=== PATIENT | female | born 1940 | race Caucasian/White ===

== ENCOUNTER 2018-03-11 19:34 | Emergency (ER) | payer MEDICARE ==
[2018-03-11] MEDS ORDERED: Aspirin 81 mg CHEW TAB* 81 MG TAB.CHEW PO ONE (20:25)
--- NOTE | 2018-03-11 20:31 | UC ---
Cardiac HPI - History of Current Complaint Chief Complaint: UCLowerExtremity Stated Complaint: LOW BACK/LEFT LEG PAIN and chest pains lasting about 1 hour. Feels like pressure. Time Seen by Provider: 03/11/18 19:45 Hx Obtained From: Patient Onset/Duration: Lasting Hours Timing: Constant Initial Severity: Moderate Current Severity: Mild Pain Intensity: 3 Chest Pain Location: Mid Sternal Character: Heaviness, Pressure/Squeezing Aggravating Factor(s): Nothing Alleviating Factor(s): Nothing Associated Signs & Symptoms: Positive: Negative Related History: Similar Episode/Dx as - Has history of CAD. Last cardiac cath about 5 years ago. - Risk Factors Cardiac Risk Factors: Hypertension, Elevated Lipids - pre diabetes Atrial Fibrillation: Negative AMI/ACS Risk Factors: Diabetes - pre-diabetes, Hypertension, Dyslipidemia - Allergy/Home Medications Allergies/Adverse Reactions: Allergies Allergy/AdvReac Type Severity Reaction Status Date / Time No Known Allergies Allergy Verified 03/11/18 19:54 Home Medications: Home Medications Acetaminophen [Tylenol Extra Strength] 100 mg PO DAILY 03/11/18 [History Confirmed 03/11/18] PMH/Surg Hx/FS Hx/Imm Hx - Additional Past Medical History Additional PMH: Hx of CAD and cardiac cath. 5 years ago. Taking no meds for elevated lipids , due to side effects. Pain and pressure in center of chest on and off and lasting about one hour each time. Has them frequently over the last several months. Previously Healthy: No Endocrine History: Diabetes - pre- diabetes., Dyslipidemia Cardiovascular History: Cardiac Disease, Hypertension GI/ History: Gastroesophageal Reflux Other History Of: Negative For: HIV, Hepatitis B, Anticoagulant Therapy - status post Jorge - Surgical History Surgical History: Yes Surgery Procedure, Year, and Place: heart catheter, collagen plug removed fromleg artery. cholecystectomy - Family History Known Family History: Positive: Unknown, Hypertension - Social History Occupation: Retired Lives: With Family Alcohol Use: None Substance Use Type: None Smoking Status (MU): Never Smoked Tobacco Review of Systems Skin: Negative Eyes: Negative ENT: Negative Respiratory: Negative Cardiovascular: Chest Pain Gastrointestinal: Negative Genitourinary: Negative Motor: Negative Neurovascular: Negative Musculoskeletal: Other: - Pain in left LE and low back All Other Systems Reviewed And Are Negative: Yes Physical Exam - Summary Physical Exam Summary: 77 yo alert, elderly woman . Color is pink. ambulates slowly and with antalgic gait, but no cane or walker. Triage Information Reviewed: Yes Appearance: Pain Distress - moderate distress. Vital Signs: Initial Vital Signs Temp 97.8 F 03/11/18 19:49 Pulse 72 03/11/18 19:49 Resp 16 03/11/18 19:49 BP 143/66 03/11/18 19:49 Pulse Ox 99 03/11/18 19:49 Vital Signs Reviewed: Yes Eyes: Positive: Conjunctiva Clear ENT: Positive: Other - hard of hearing. Dental Exam: Normal Neck exam: Normal Neck: Negative: Tenderness @, Enlarged Nodes @ Respiratory: Positive: Chest non-tender, Lungs clear, No respiratory distress, No accessory muscle use. Negative: Plerual rub Cardiovascular: Positive: RRR, No Murmur, Pulses Normal, Brisk Capillary Refill Abdominal Exam: Normal Abdomen Description: Positive: Nontender. Negative: CVA Tenderness (R), CVA Tenderness (L) Bowel Sounds: Positive: Present Pelvic Exam: Positive: Other - not examined Musculoskeletal: Positive: Other: - some pain with SLR on left. Neurological Exam: Normal Psychological Exam: Normal Skin Exam: Normal Diagnostics - EKG Cardiac Rate: NL Cardiac Rhythm: Sinus: Normal Ectopy: None ST Segment: Normal - Differential Diagnoses - Chest Pain Differential Diagnosis/HQI/PQRI: Angina - Differential Diagnoses - Hypertension Differential Diagnosis/HQI PQRI: Angina, Myocardial Infarction - Differential Diagnoses - Palpitations Differential Diagnosis/HQI/PQRI: Coronary Artery Disease - Clinical Impression Provider Diagnoses: chest pain, rule out CAD. lower extremity pain. Discharge - Sign-Out/Discharge Documenting (check all that apply): Discharge/Admit/Transfer - transfer to ER - Discharge Plan Condition: Stable Disposition: TRANS HIGHER L OF CARE FAC Referrals: Pia Gil MD [Primary Care Provider] - - Billing Disposition and Condition Condition: STABLE Disposition: Trans Higher Lvl of Care Fac
[2018-03-11 20:59] VITALS: BP 132/67
== END 2018-03-11 21:00 | disposition short-term general hospital (02) ==
LOC: UCCORT 19:34
DX: R07.9 Chest pain, unspecified (principal); M79.606 Pain in leg, unspecified
CPT/HCPCS: 93005; 99213; A9270-GY; G0463

== ENCOUNTER 2018-08-14 13:31 | Emergency (ER) | payer MEDICARE ==
[2018-08-14 15:01] VITALS: BP 121/59
--- NOTE | 2018-08-14 15:32 | UC ---
Complaint Female HPI - HPI Summary HPI Summary: 77-year-old woman here with a chief complaint of burning with urination been going on for several days. This reminds her of urinary tract infection. She does have a prior history of surgery for uterine prolapse. She's been having some difficulties with urination for more than a year now. She has an appointment with a hand silvering supervisor tomorrow August 15, 2018 for this issue and also with the urologist on August 24, 2018 for the same issue. She gets intermittent suprapubic left lower quadrant pain. That's been going on for about a month she does not have that pain at this time. No fevers or chills. She does have some chronic low back pain that is not any worse with the most recent urinary exacerbation. - History Of Current Complaint Chief Complaint: UCGU Stated Complaint: URINARY COMPLAINT Time Seen by Provider: 08/14/18 15:08 Pain Intensity: 3 - Allergies/Home Medications Allergies/Adverse Reactions: Allergies Allergy/AdvReac Type Severity Reaction Status Date / Time oxycodone [From Percocet] Allergy Rash Verified 08/14/18 14:46 Home Medications: Home Medications Glucosam/Chondr/Collagn/Hyalur [Th Glucosamine/Chondroiti] 1 cap PO DAILY PRN [History Confirmed 08/14/18] Multivitamin with Minerals [One Daily Complete] 1 each PO DAILY 08/14/18 [ History Confirmed 08/14/18] Pantoprazole Sodium [Protonix] 40 mg PO DAILY 08/14/18 [History Confirmed ] PMH/Surg Hx/FS Hx/Imm Hx Previously Healthy: Yes - RECURRENT UTIS Other History Of: Negative For: HIV, Hepatitis B, Anticoagulant Therapy - status post Jorge - Surgical History Surgical History: Yes Surgery Procedure, Year, and Place: heart catheter, collagen plug removed from leg artery. cholecystectomy. Uterine/bladder prolapse and mesh sx--2008. Forearm artery removed due to collapse of same during cardiac cath proceedure. Cataracts b/l - Family History Known Family History: Positive: Unknown, Hypertension Negative: Diabetes - Social History Alcohol Use: None Substance Use Type: None Smoking Status (MU): Never Smoked Tobacco Review of Systems All Other Systems Reviewed And Are Negative: Yes Constitutional: Positive: Negative Skin: Positive: Negative Eyes: Positive: Negative ENT: Positive: Negative Respiratory: Positive: Negative Cardiovascular: Positive: Negative Gastrointestinal: Positive: Abdominal Pain - SEE HPI Genitourinary: Positive: Dysuria, Frequency, Urgency Motor: Positive: Negative Neurovascular: Positive: Negative Musculoskeletal: Positive: Negative Neurological: Positive: Negative Psychological: Positive: Negative Is Patient Immunocompromised?: No Physical Exam Triage Information Reviewed: Yes Appearance: Well-Appearing, No Pain Distress, Well-Nourished Vital Signs: Initial Vital Signs Temp 97.8 F 08/14/18 14:52 Pulse 64 08/14/18 14:52 Resp 20 08/14/18 14:52 BP 121/59 08/14/18 14:52 Pulse Ox 99 08/14/18 14:52 Vital Signs Reviewed: Yes Eye Exam: Normal Eyes: Positive: Conjunctiva Clear Neck exam: Normal Neck: Positive: Supple Respiratory Exam: Normal Respiratory: Positive: Lungs clear, Normal breath sounds, No respiratory distress Cardiovascular Exam: Normal Cardiovascular: Positive: RRR Abdomen Description: Positive: Soft, CVA Tenderness (R) - CHRONIC, CVA Tenderness (L) - CHRONIC Bowel Sounds: Positive: Present Musculoskeletal Exam: Normal Musculoskeletal: Positive: Strength Intact, ROM Intact Neurological Exam: Normal Neurological: Positive: Alert, Muscle Tone Normal, Other: - LEGALLY BLIND Psychological Exam: Normal Psychological: Positive: Normal Response To Family, Age Appropriate Behavior Skin Exam: Normal Complaint Female Dx - Course Course Of Treatment: Patient has appointment tomorrow with her hand silvering supervisor. We will treat the urinary tract infection with Keflex. Urinary culture is pending. Also checking a CBC and a CMP to ensure adequate renal function. Those results are pending. Outpatient no she started feeling very sick she needed to get checked again right away. She has a urology follow-up on August 24, 2018. - Differential Dx/Diagnosis Provider Diagnoses: UTI Discharge - Sign-Out/Discharge Documenting (check all that apply): Patient Departure All imaging exams completed and their final reports reviewed: No Studies - Discharge Plan Condition: Stable Disposition: HOME Prescriptions: Cephalexin CAP* [Keflex CAP*] 500 mg PO TID #21 cap Patient Education Materials: Urinary Tract Infection in Women (ED) Referrals: Nasima Matias MD [Primary Care Provider] - Additional Instructions: FOLLOW UP WITH YOUR DOCTOR. FOLLOW UP WITH GYNECOLOGY TOMORROW SCHEDULED. FOLLOW UP WITH UROLOGY ON July SCHEDULED. YOU R BLOOD WORK; CBC AND CMP RESULTS ARE PENDING. GET RECHECKED FOR ANY WORSENING OF YOUR CONDITION OR QUESTIONS OR CONCERNS. - Billing Disposition and Condition Condition: STABLE Disposition: Home
[2018-08-14 18:46] LABS: EGFR Non-African American 45.5 (>60)
[2018-08-14 18:53] LABS: Hematocrit 39 % (35-47); Hemoglobin 13.1 g/dl (12.0-16.0); Mean Corpuscular HGB Conc 34 g/dl (31-36); Mean Corpuscular Hemoglobin 32 pg (27-31); Mean Corpuscular Volume 93 fL (80-97); Red Blood Count 4.16 10^6/ul (4.00-5.40); Red Cell Distribution Width 12 % (10.5-15); White Blood Count 8.7 10^3/ul (3.5-10.8)
[2018-08-14 19:27] LABS: ABS Basophils 0.1 10^3/ul (0-0.2); ABS Eosinophils 0.1 10^3/ul (0-0.6); ABS Lymphocytes 2.5 10^3/ul (1.0-4.8); ABS Monocytes 0.6 10^3/ul (0-0.8); ABS Neutrophils 5.4 10^3/ul (1.5-7.7); ABS Nucleated RBC 0 10^3/ul; Eosinophil % 1.1 % (0-6); Lymphocyte % 28.6 % (25-47); Nucleated Red Blood Cells % 0
[2018-08-14 19:28] LABS: Platelet Count Platelets clumped. 10^3/ul (150-450)
--- NOTE | 2018-08-17 07:30 | UC ---
- Progress Note Progress Note: + e coli + proteus On cephalexin sensitive ljj 08/17/2018 Discharge - Sign-Out/Discharge Documenting (check all that apply): Post-Discharge Follow Up All imaging exams completed and their final reports reviewed: No Studies - Discharge Plan Condition: Stable Disposition: HOME Prescriptions: Cephalexin CAP* [Keflex CAP*] 500 mg PO TID #21 cap Patient Education Materials: Urinary Tract Infection in Women (ED) Referrals: Nasima Matias MD [Primary Care Provider] - Additional Instructions: FOLLOW UP WITH YOUR DOCTOR. FOLLOW UP WITH GYNECOLOGY TOMORROW SCHEDULED. FOLLOW UP WITH UROLOGY ON July SCHEDULED. YOU R BLOOD WORK; CBC AND CMP RESULTS ARE PENDING. GET RECHECKED FOR ANY WORSENING OF YOUR CONDITION OR QUESTIONS OR CONCERNS. - Billing Disposition and Condition Condition: STABLE Disposition: Home
== END 2018-08-14 15:44 | disposition home or self-care (01) ==
LOC: UCCORT 13:31
DX: N39.0 Urinary tract infection, site not specified (principal); B96.20 Unspecified Escherichia coli [E. coli] as the cause of diseases classified elsewhere; B96.4 Proteus (mirabilis) (morganii) as the cause of diseases classified elsewhere; Z88.5 Allergy status to narcotic agent
CPT/HCPCS: 36415; 80053; 81003; 85025; 87077; 87086; 87186; 99212; G0463

== ENCOUNTER 2018-08-25 15:52 | Emergency (ER) | payer MEDICARE ==
--- OUTSIDE RECORDS SUMMARY | 2018-08-25 16:18 | XMS REPORT ---
:1940 External Reference #:[id number] Author Organization [facility] Address [address], [address] [place] [address] Phone [phone] Care Team Providers Name Role Phone Nasima Matias MD Care Team Information Crew Mess Attendant Unavailable Nasima Matias MD Primary Care Physician Unavailable Payers Type Date Identification Numbers Payment Provider Subscriber Medicare Primary Effective: Policy Number: Medicare Ava 2003 [id number] Jaelyn PayID: [id number] [address] [place] [address] [facility] Policy Number: [facility] Ava Christy [id number] PayID: [id number] [address] [place] [address] Problems Date Description Provider Status Onset: 08/24/2018 Urinary tract infectious disease Lenore Richard M.D. Active Onset: 08/24/2018 Difficulty passing urine Lenore Richard M.D. Active Onset: 06/06/2018 Transient cerebral ischemia Sanford Terrell M.D., Active FACC Onset: 06/06/2018 Abnormal results of cardiovascular Sanford Terrell M.D., Active function studies FACC Onset: 04/26/2018 Gastroesophageal reflux disease Gary Ortega MD Active Onset: 04/26/2018 Chest pain Gary Ortega MD Active Onset: 08/24/2017 Flatulence, eructation and gas Gary Ortega MD Active pain Onset: 05/25/2017 Heartburn Gary Ortega MD Active Onset: 05/25/2017 Chronic nonalcoholic liver disease Gary Ortega MD Active Onset: 05/25/2017 Diarrhea Gary Ortega MD Active Onset: 05/25/2017 Helicobacter pylori Gary Ortega MD Active Family History Date Family Member(s) Problem(s) Comments General Non Contributory : (age 63 Years) Father due to Black Lung (working in [employer]) : (age 41 Years) Mother due to Breast Cancer : (age 49 Years) First Brother due to [place] Social History Type Date Description Comments Marital Status Lives With [facility]ma Home Environment Lives With Diet Patient is on a low sodium diet Occupation Retired Work Status Retired ADL's/IADL's Independent with all ADL's Cigarette Use 20 Years Quit smoked for 5 years Smokeless Tobacco Never Used Smokeless Tobacco ETOH Use Denies alcohol use Smoking Patient is a former smoker Quit when she was 13 Recreational Drug Use Denies Drug Use Daily Caffeine Current Caffeine User Daily Caffeine Patient consumes minimal amounts of caffeine Allergies, Adverse Reactions, Alerts Date Description Reaction Status Severity Comments 01/02/2009 NKDA active Medications Medication Date Status Form Strength Qnty SIG Indications Ordering Provider Tums 08/24/ Active 500mg prn Jose Manuel, 2018 Leonid Grover Acetaminophen 08/24/ Active Tab 1000mg 1 tab po Jose Manuel, 2018 daily prn Leonid Grover Pantoprazole 06/29/ Active Tablets DR 40mg 30tabs 1 by mouth K21.9 Brian Terrell 2018 every day Sanford Wayne M.D., [facility] Nitrostat 06/06/ Active Tablets 0.4mg 30tabs 1 tab sl Nidhi, 2018 Sub every 5 Sanford Wayne min x3 M.DLeonides, FAC chest pain per pt prn Atenolol / Active Tablets 25mg 1/2 by Unknown 0000 mouth bid Probiotic / Active Capsules 1 by mouth Unknown 0000 every day Resveratrol / Active Capsules 100mg 1 po daily Unknown 0000 Co Q 10 / Active Capsules 100mg 1 by mouth Unknown 0000 every day Glucosamine & / Active Cap 1 cap oral Unknown Chondroitin Cap 0000 everyday prn Multivitamin / Active Tablets Adlt 50+ 1 by mouth Unknown Adults 50+ 0000 every day Amlodipine 06/13/ Hx Tablets 2.5mg 30tabs 1 by mouth R07.9 Davidenko, Besylate 2018 every day Sanford Wayne M.D., [facility] Isosorbide 06/06/ Hx Tablets ER 30mg 30tabs 1 by mouth Nidhi Mononitrate ER 2018 24HR every day Sanford Wayne M.D., [facility] Ranexa 05/22/ Hx Tablets ER 500mg 60tabs 1 tab by R07.9 Nidhi, 2018 12HR mouth Sanford Wayne, twice a M.DLeonides, [facility] day Pantoprazole 04/26/ Hx Tablets DR 20mg 90tabs 1 by mouth K21.9 Gary Ortega, Sodium 2018 - every day MD 06/29/ 2017 morning Eye Vitamins 12/10/ Hx Capsules po qd Nidhi, 2009 Sanford Wayne M.D., [facility] Glucosamine-Cho 12/10/ Hx Capsules prn Nidhi, jonhoitin 2009 Sanford Wayne M.D., [facility] Aspirin / Hx Tablets 81mg 1 po qd Unknown 0000 Atenolol / Hx Tablets 25mg 30tabs 1/2 po Unknown 0000 bid Christiana-C / Hx Tablets 500mg 1 po qd Unknown 0000 prn Tums / Hx Chewtabs 500mg prn Unknown 0000 Garlic / Hx Capsules 1 po qd Unknown 0000 Nexium / Hx Capsules 40mg 30caps 1 po qd Unknown [address] DR Nitroglycerin / Hx Tablets 0.4mg 25tabs 1 tab prn Unknown 0000 Sub Lovastatin / Hx Tablets 20mg 90tabs 1 po qd Unknown 0000 Prilosec OTC / Hx Tablets DR 20mg 1 po qd Unknown 0000 Coq10 / Hx Capsules 20mg 1 tab Unknown 0000 daily Resveratrol / Hx Capsules 100mg 1 tab Unknown 0000 daily Flatgap 3 / Hx Capsules 340mg [address] daily Ultimate / Hx Tab 1 tab Unknown Friendly Praveena 0000 daily Pantoprazole / Hx Tablets DR 40mg 1 by mouth Unknown Sodium 0000 every day Ranexa / Hx Tablets ER 500mg 180tab 1 tab by R07.9 Nidhi, 0000 - 12HR s mouth Sanford Wayne, 06/13/ twice M.DLeonides, [facility] 2018 daily Vital Signs Date Vital Result Comment 08/24/2018 BP Systolic 97 mmHg BP Diastolic 60 mmHg Heart Rate 57 /min Respiratory Rate 16 /min Height 60 inches 5'0" Weight 164.38 lb BMI (Body Mass Index) 32.1 kg/m2 BSA (Body Surface Area) 1.72 m2 Eastman body weight in kilograms 45 O2 % BldC Oximetry 96 % Pain Level 0 06/29/2018 BP Systolic Sitting Left Arm 104 mmHg BP Diastolic Sitting Left Arm 68 mmHg Heart Rate 63 /min Respiratory Rate 18 /min Height 60 inches 5'0" Weight 166.00 lb BMI (Body Mass Index) 32.4 kg/m2 BSA (Body Surface Area) 1.72 m2 Eastman body weight in kilograms 45 O2 % BldC Oximetry 96 % Room air 06/06/2018 BP Systolic Sitting Left Arm 124 mmHg BP Diastolic Sitting Left Arm 70 mmHg Heart Rate 75 /min Respiratory Rate 14 /min Height 60 inches 5'0" Weight 167.00 lb BMI (Body Mass Index) 32.6 kg/m2 BSA (Body Surface Area) 1.73 m2 Eastman body weight in kilograms 45 O2 % BldC Oximetry 97 % 05/22/2018 BP Systolic Sitting Left Arm 118 mmHg BP Diastolic Sitting Left Arm 64 mmHg Heart Rate 64 /min Respiratory Rate 18 /min Height 60 inches 5'0" Weight 168.00 lb BMI (Body Mass Index) 32.8 kg/m2 BSA (Body Surface Area) 1.73 m2 Eastman body weight in kilograms 45 O2 % BldC Oximetry 98 % 04/26/2018 BP Systolic Sitting Left Arm 100 mmHg BP Diastolic Sitting Left Arm 62 mmHg Heart Rate 66 /min Respiratory Rate 16 /min Height 60 inches 5'0" Weight 167.00 lb BMI (Body Mass Index) 32.6 kg/m2 BSA (Body Surface Area) 1.73 m2 Eastman body weight in kilograms 45 08/24/2017 BP Systolic Sitting Left Arm 110 mmHg BP Diastolic Sitting Left Arm 64 mmHg Heart Rate 64 /min Respiratory Rate 16 /min Height 60 inches 5'0" Weight 175.00 lb BMI (Body Mass Index) 34.2 kg/m2 BSA (Body Surface Area) 1.76 m2 Eastman body weight in kilograms 45 05/25/2017 BP Systolic Sitting Left Arm 122 mmHg BP Diastolic Sitting Left Arm 78 mmHg Heart Rate 57 /min Respiratory Rate 16 /min Height 60 inches 5'0" Weight 176.00 lb BMI (Body Mass Index) 34.4 kg/m2 BSA (Body Surface Area) 1.77 m2 Eastman body weight in kilograms 45 08/31/2011 Height 60 inches 5'0" Weight 173.00 lb 12/10/2005 Height 61 inches 5'1" Weight 186.00 lb Results Test Date Test Result H/L Range Note Urine Dipstick 08/24/2018 Ua Color yellow Yellow Ua Clarity clear Clear Ua Leuko 125 High Negative Ua Nitrite Negative Negative Ua Urobilinogen 0.2 0.2 - 1.0 E.U./dL Ua Protein 15 High Negative Ua PH 6 Low 6.5-7.5 Ua Blood 80 High Negative Ua Specific Dell 1.030 1.010-1.030 Ua Ketones Negative Negative Ua Bilirubin Negative Negative Ua Glucose Negative Negative Serum sodium measurement 03/13/2018 Serum sodium measurement 142 136-145 Serum or plasma urea 03/13/2018 Serum or plasma urea 19 High 7-18 nitrogen measurement nitrogen measurement (mass/vo (mass/volume) Serum or plasma glucose 03/13/2018 Serum or plasma glucose 114 High 74- 106 measurement (mass/volume) measurement (mass/volume) Serum or plasma 03/13/2018 Serum or plasma 0.9 0.6-1.3 creatinine measurement creatinine measurement (mass/volum (mass/volume) Basic Metabolic Panel 03/13/2018 Glucose 114 mg/dL High 74-106 1 BUN 19 mg/dL High 7-18 1 Creatinine 0.9 mg/dL 0.6-1.3 1 Glom Filtration Rate, Estimate >60 mL/min >60 1 If >60 mL/min >60 1, 2 BUN/Creat 21.1 ratio 1 Sodium 142 mmol/L 136-145 1 Potassium 4.1 mmol/L 3.5-5.1 1 Chloride 108 mmol/L High 98-107 1 Carbon Dioxide 24 mmol/L 21-32 1 Anion Gap 10 mEq/L 8-16 1 Calcium 8.8 mg/dL 8.5-10.1 1 Laboratory test 03/13/2018 Troponin-I < 0.015 ng/mL 1, 3 finding Anion Gap SerPl-sCnc 03/13/2018 Anion Gap SerPl-sCnc 10 8-16 BUN/Creat SerPl 03/13/2018 BUN/Creat SerPl 21.1 Chloride SerPl-sCnc 03/13/2018 Chloride SerPl-sCnc 108 High 98-107 Potassium SerPl-sCnc 03/13/2018 Potassium SerPl-sCnc 4.1 3.5-5.1 Serum carbon dioxide 03/13/2018 Serum carbon dioxide 24 21-32 measurement measurement Serum or plasma 03/13/2018 Serum or plasma 8.8 8.5-10.1 calcium measurement calcium measurement (mass/volume) (mass/volume) Basic Metabolic Panel 03/12/2018 Glucose 117 mg/dL High 74-106 1 BUN 19 mg/dL High 7-18 1 Creatinine 0.8 mg/dL 0.6-1.3 1 Glom Filtration Rate, Estimate >60 mL/min >60 1 If >60 mL/min >60 1, 4 BUN/Creat 23.7 ratio 1 Sodium 141 mmol/L 136-145 1 Potassium 4.1 mmol/L 3.5-5.1 1 Chloride 105 mmol/L 98-107 1 Carbon Dioxide 28 mmol/L 21-32 1 Anion Gap 8 mEq/L 8-16 1 Calcium 8.8 mg/dL 8.5-10.1 1 Laboratory test 03/12/2018 Magnesium 2.0 mg/dL 1.8-2.4 1 finding Globulin Ser Calc-mCnc 03/11/2018 Globulin Ser Calc-mCnc 3.8 1.9-4.3 Lymphocytes/leuk NFr 03/11/2018 Lymphocytes/leuk NFr 40.6 20.0-42.0 Bld Auto Bld Auto Monocytes/leuk NFr Bld 03/11/2018 Monocytes/leuk NFr Bld 10.1 4.3-13.2 Auto Auto Neutrophils # Bld Auto 03/11/2018 Neutrophils # Bld Auto 3.22 1.8-7.0 Neutrophils/leuk NFr 03/11/2018 Neutrophils/leuk NFr 46.5 40.4-72.8 Bld Auto Bld Auto RDW RBC Auto 03/11/2018 RDW RBC Auto 43.5 3-47 RDW RBC Auto-Rto 03/11/2018 RDW RBC Auto-Rto 13.0 11.7-14.4 Serum or plasma 03/11/2018 Serum or plasma 3.9 3.4-5.0 albumin measurement albumin measurement (mass/volume) (mass/volume) Serum or plasma 03/11/2018 Serum or plasma 54 45-117 alkaline phosphatase alkaline phosphatase measurement ( measurement (enzymatic activity/volume) Serum or plasma 03/11/2018 Serum or plasma 24 15-37 aspartate aspartate aminotransferase aminotransferase measure measurement (enzymatic activity/volume) Serum or plasma 03/11/2018 Serum or plasma 7.7 6.4-8.2 protein measurement protein measurement (mass/volume) (mass/volume) Serum or plasma total 03/11/2018 Serum or plasma total 0.3 0.2-1.0 bilirubin measurement bilirubin measurement (mass/ (mass/volume) Stool occult blood 03/11/2018 Stool occult blood Negative Negative Automated blood 03/11/2018 Automated blood 0.15 0.0-0.5 eosinophil count eosinophil count Automated blood 03/11/2018 Automated blood 0.04 0.0-0.1 basophil count basophil count (count/volume) (count/volume) Albumin/Glob SerPl 03/11/2018 Albumin/Glob SerPl 1.0 Alt SerPl-cCnc 03/11/2018 Alt SerPl-cCnc 23 12-78 Automated blood 03/11/2018 Automated blood 37.1 36.0-46.1 hematocrit (volume hematocrit (volume fraction) fraction) Automated blood 03/11/2018 Automated blood 2.81 1.0-4.0 lymphocyte count lymphocyte count (number/volume) (number/volume) Automated blood 03/11/2018 Automated blood 233 155-360 platelet count platelet count Automated blood 03/11/2018 Automated blood 10.2 8.9-12.4 platelet mean volume platelet mean volume measurement measurement Automated erythrocyte 03/11/2018 Automated erythrocyte 31.9 25.9-32.7 mean corpuscular mean corpuscular hemoglobin hemoglobin (mass per erythrocyte) Automated erythrocyte 03/11/2018 Automated erythrocyte 34.2 30.8-34.3 mean corpuscular mean corpuscular hemoglobin hemoglobin concentration measurement (mass/volume) Automated erythrocyte 03/11/2018 Automated erythrocyte 93.2 80.9-99.0 mean corpuscular mean corpuscular volume volume Basophils/leuk NFr Bld 03/11/2018 Basophils/leuk NFr Bld 0.6 0.0-1.1 Auto Auto Blood erythrocytes 03/11/2018 Blood erythrocytes 3.98 3.90-5.40 automated count automated count (number/volume) (number/volume) Blood hemoglobin 03/11/2018 Blood hemoglobin 12.7 11.6-15.8 measurement measurement (mass/volume) (mass/volume) Blood leukocytes 03/11/2018 Blood leukocytes 6.9 3.1-10.7 automated count automated count (number/volume) (number/volume) Blood monocytes 03/11/2018 Blood monocytes 0.70 0.3-0.9 automated count automated count (number/volume) (number/volume) Eosinophil/leuk NFr 03/11/2018 Eosinophil/leuk NFr 2.2 0.0-6.6 Bld Auto Bld Auto Serum or plasma 11/24/2017 Serum or plasma 106 26-192 creatine kinase creatine kinase measurement (enzym measurement (enzymatic activity/volume) pH Ur Strip.auto 11/24/2017 pH Ur Strip.auto 5.5 Low 6.5-7.5 Urobilinogen Ur 11/24/2017 Urobilinogen Ur 1.0 0.2-1.0 Strip-aCnc Strip-aCnc Urine total bilirubin 11/24/2017 Urine total bilirubin Small High Negative detection by automated detection by automated test test strip Urine hemoglobin 11/24/2017 Urine hemoglobin Small High Negative detection by automated detection by automated test strip test strip Urine glucose 11/24/2017 Urine glucose Negative Negative measurement by measurement by automated test strip automated test strip (mass/volume) Urine appearance 11/24/2017 Urine appearance Clear Clear determination determination Specific gravity of 11/24/2017 Specific gravity of 1.020 1.010-1.030 Urine by Automated Urine by Automated test strip test strip Prot Ur 11/24/2017 Prot Ur Negative Negative Strip.auto-mCnc Strip.auto-mCnc Nitrite Ur Ql 11/24/2017 Nitrite Ur Ql Negative Negative Strip.auto Strip.auto Leukocyte esterase Ur 11/24/2017 Leukocyte esterase Ur Trace High Negative Ql Strip.auto Ql Strip.auto Bacteria detection in 11/24/2017 Bacteria detection in Very Few None Seen urine sediment by urine sediment by light micr light microscopy Color Ur 11/24/2017 Color Ur Yellow Yellow Epithelial cells 11/24/2017 Epithelial cells Many None Seen detection in urine detection in urine sediment by li sediment by light microscopy Ketones Ur 11/24/2017 Ketones Ur Trace High Negative Strip.auto-mCnc Strip.auto-mCnc Laboratory test 08/31/2017 H. Pylori Stool <pending> 5 finding Antigen Celiac Disease Comp AB 08/31/2017 Immunoglobulin A 175 mg/dL 64-422 5 Profile Antigliadin Abs, IgG 4 units 0-19 5, 6 Antigliadin Abs, IgA 11 units 0-19 5, 7 Endomysial IgA Antibody Negative Negative 5 t-Transglutaminase IgA <2 U/mL 0-3 5, 8 t-Transglutaminase IgG <2 U/mL 0-5 5, 9 Laboratory test finding 08/31/2017 H. Pylori Stool Negative Negative 5, 10 Antigen Delatorre Fibrosure 05/31/2017 Delatorre Fibrosis Score 0.33 High 0.00-0.21 11 Delatorre Fibrosis Stage F1-F2 . 11 Delatorre Steatosis Score 0.60 High 0.00-0.30 11 Delatorre Steatosis Grade (SEE NOTE) 11, 12 Delatorre Score 0.75 0.25 11 Delatorre Grade (SEE NOTE) 11, 13 Height 60 Inches . 11 Weight Measured 176 LBS . 11 Vtxig-8-Zncypsirdwjqx 297 mg/dL High 110-276 11 Haptoglobin 101 mg/dL 34-200 11 Apolipoprotein A-1 149 mg/dL 116-209 11 Bilirubin,Total 0.3 mg/dL 0.0-1.2 11 GGT 11 IU/L 0-60 11 Alt (SGPT) 19 IU/L 0-40 11 Alt (Sgot) P5P 24 IU/L 0-40 11 Cholesterol,Total 212 mg/dL High 100-199 11 Glucose, Serum 113 mg/dL High 65-99 11 Triglycerides 157 mg/dL High 0-149 11 Delatorre Interpretations: (SEE NOTE) 11, 14 Fibrosis Scoring (SEE NOTE) 11, 15 Steatosis Grading (SEE NOTE) 11, 16 Delatorre Scoring (SEE NOTE) 11, 17 Delatorre Limitations (SEE NOTE) 11, 18 Delatorre Comment . 11, 19 Delatorre Comment 2 (SEE NOTE) 11, 20 Height 60' 11 Weight 176 11 Laboratory test 05/31/2017 H. Pylori Stool Antigen Positive Negative 11 , 21 finding Laboratory test 05/31/2017 Triglycerides 163 mg/dL High <150 11, 22 finding Hepatitis C Antibody < 0.1 s/corat 0.0-0.9 11, 23 Ceruloplasmin 05/31/2017 Ceruloplasmin 22.8 mg/dL 19.0-39.0 11 Height 60' 11 Weight 176 11 Laboratory test finding 07/13/2016 Helicobacter Pylori, Iga Abs <pending> Xray 02/14/2016 CT, Abdomen & Pelvis W Contrast <pending> Xray 11/26/2014 CT, Abdomen & Pelvis W Contrast <pending> Xray 07/25/2012 Upper GI Series <pending> Xray 07/12/2012 CT, Abdomen & Pelvis W Contrast <pending> 1 CHEST PAIN 2 Note: Persistent reduction for 3 months or more in an eGFR <60 mL/min/1.73 m2 defines CKD. Patients with eGFR values >/=60 mL/min/1.73 m2 may also have CKD if evidence of persistent proteinuria is present. The original MDRD equation for estimated GFR is not valid for patients less than 18 years of age. Additional information may be found at www.kdoqi.org. 3 0.0 - 0.045 ng/mL: Normal 0.046 - 0.5 ng/mL: Suggestive 0.6 - 1.5 ng/mL: Consistent 4 Note: Persistent reduction for 3 months or more in an eGFR <60 mL/min/1.73 m2 defines CKD. Patients with eGFR values >/=60 mL/min/1.73 m2 may also have CKD if evidence of persistent proteinuria is present. The original MDRD equation for estimated GFR is not valid for patients less than 18 years of age. Additional information may be found at www.kdoqi.org. 5 B96.81 R14.0 6 Negative 0 - 19 Weak Positive 20 - 30 Moderate to Strong Positive >30 7 Negative 0 - 19 Weak Positive 20 - 30 Moderate to Strong Positive >30 8 Negative 0 - 3 Weak Positive 4 - 10 Positive >10 Tissue Transglutaminase (tTG) has been identified as the endomysial antigen. Studies have demonstr- ated that endomysial IgA antibodies have over 99% specificity for gluten sensitive enteropathy. 9 Negative 0 - 5 Weak Positive 6 - 9 Positive >9 Performed at: RN - [facility] [id number] Splicing Supervisor: Delphine Yanez MD, Phone: [phone] Performed at: [facility] [id number] Splicing Supervisor: Delphine Yanez MD, Phone: [phone] K76.0 B96.81 12 S2 - Moderate Steatosis 13 N2 - DELATORRE 14 Quantitative results of 10 biochemicals in combination with age, gender, height, and weight, are analyzed using a computational algorithm to provide a quantitative surrogate marker (0.0-1.0) of liver fibrosis (Metavir F0-F4), hepatic steatosis (0.0-1.0, S0-S3), and Non-Alcoholic Steato- Hepatitis (DELATORRE) (0.0-0.75, N0-N2). The absence of steatosis (S<0.38) precludes the diagnosis of DELATORRE. Fibrosis marker: In a study of 171 Non-Alcoholic Fatty Liver Disease (NAFLD) patients where 23% had significant NAFLD fibrosis (Metavir F2-F4) and 11% had cirrhosis by liver biopsy, a fibrosis result of >0.3 yielded a sensitivity of 83% and a specificity of 78% for the detection of significant fibrosis(1). Steatosis Marker: In a population of 744 patients (583 HCV, 18 HBV, 69 NAFLD, and 74 alcoholic disease patients), where 36% had significant steatosis (>5%) on a liver biopsy, a steatosis score >0.5 had a sensitivity of 71% and a specificity of 72% for identification of significant steatosis(2). DELATORRE marker: In a population of 257 NAFLD patients, where 62% had at least some DELATORRE by liver biopsy, a prediction of DELATORRE had a sensitivity of 88% for identifying DELATORRE and a specificity of 50%(3). 15 <0.21=Stage F0 - No fibrosis 0.21 - 0.27=Stage F0 - F1 0.27 - 0.31=Stage F1 - Portal fibrosis 0.31 - 0.48=Stage F1 - F2 0.48 - 0.58=Stage F2 - Bridging fibrosis with few septa 0.58 - 0.72=Stage F3 - Bridging fibrosis with many septa 0.72 - 0.74=Stage F3 - F4 >0.74=Stage F4 - Cirrhosis 16 < 0.30=S0 - No Steatosis 0.30 to 0.38=S0 - S1 0.38 to 0.48=S1 - Minimal Steatosis 0.48 to 0.57=S1 - S2 0.57 to 0.67=S2 - Moderate Steatosis 0.67 to 0.69=S2 - S3 > 0.69=S3 - Marked or Severe Steatosis 17 0.25=N0 - Not DELATORRE 0.50=N1 - Borderline or probable DELATORRE 0.75=N2 - DELATORRE 18 DELATORRE FibroSure is recommended for patients with suspected non-alcoholic fatty liver disease. It is not recommended for patients with other liver diseases. It is also not recommended in patients with Gilbert Disease, acute hemolysis, acute viral hepatitis, drug induced hepatitis, genetic liver disease, autoimmune hepatitis and/or extra- hepatic cholestasis. Any of these clinical situations may lead to inaccurate quantitative predictions of fibrosis. 19 Performed at: [address] [id number] Splicing Supervisor: Brian Fraire MD, Phone: [phone] Performed at: [address] [id number] Splicing Supervisor: Delphine Yanez MD, Phone: [phone] This test was developed and its performance characteristics determined by [facility]. It has not been cleared or approved by the Food and Drug Administration. The FDA has determined that such clearance or approval is not necessary. For questions regarding this report please contact customer service at . References: 1. Tom Manrique. et al. Diagnostic Value of Biochemical Markers (FibroTest) for the prediction of Liver Fibrosis in patients with Non-Alcoholic Fatty Liver Disease. BMC Gastroenterology 2006; 6:6. 2. Krystian Nicolas. et al. The Diagnostic Value of Biomarkers (Steato Test) for the Prediction of Liver Steatosis. Comparative Hepatol. 2005; 4:10. 3. Krystian Nicolas, Flower Santos, et al. Diagnostic value of biochemical markers (DELATORRE TEST) for the prediction of non alcohol steato hepatitis in patients with non- alcoholic fatty liver disease. BMC Gastroenterology 2006; 6:34 doi:10.1186/8355-738R-5-34. 21 Performed at: [address] [id number] Splicing Supervisor: Delphine Yanez MD, Phone: [phone] Reference Guidelines*: Normal: ............. < 150 mg/dL Borderline High: .... 150-199 mg/dL High: ............... 200-499 mg/dL Very High: .......... > 500 mg/dL * Source: National Cholesterol Education Program (NCEP) 23 INFCE Result Units: s/co ratio Negative: < 0.8 Indeterminate: 0.8 - 0.9 Positive: > 0.9 The CDC recommends that a positive HCV antibody result be followed up with a HCV Nucleic Acid Amplification test (104377). Performed at: RN - [facility] [address] [id number] Splicing Supervisor: Delphine Yanez MD, Phone: [phone] Procedures Date CPT Code Description Status 06/12/2018 87891 Event Monitor Inter/Review Only Completed 05/22/2018 19330 EKG-Tracing And Report Completed 05/03/2018 81566 Stress Test Interpre And Report Only Completed 05/03/2018 69822 Stress Test Physician Super Only Completed 05/03/2018 57869 Myocardial Imaging Tomographic Multiple Study AT Rest Completed Or Stress 09/08/2016 66606 Echocardiogram Complete Completed 09/08/2016 34003 Event Monitor Inter/Review Only Completed 11/27/2014 37378 Myocardial Imaging Tomographic Multiple Study AT Rest Completed Or Stress 11/27/2014 36430 Stress Test Physician Super Only Completed 11/27/2014 23872 Stress Test Physician Super Only Completed 11/27/2014 72490 Stress Test Interpre And Report Only Completed 07/02/2010 55442 EKG Interpretation And Report Only Completed 01/07/2009 42683 Stress Test Interpre And Report Only Completed 01/07/2009 80794 Stress Test Physician Super Only Completed 01/07/2009 89913 Ejection Fraction Completed 01/07/2009 47244 Myocardial Wall Motion Completed 01/07/2009 96670 Cardiolite Stress/Rest Spect Completed 12/31/2008 87452 EKG-Tracing And Report Completed Encounters Type Date Location Provider CPT E/M Dx Office Visit 08/24/2018 3:15p Urology Lenore Richard M.D. 31352 R39.198 N39.0 Office Visit 06/29/2018 3:00p Cardiology Office Sanford Terrell, 01515 R07.9 Leonid, FAC Office Visit 06/06/2018 1:20p Cardiology Office Sanford Terrell 52153 R07.9 Leonid, FACC R94.30 R12 G45.9 Office Visit 05/22/2018 3:10p [place] [address] R07.9 R94.30 I10 Office Visit 04/26/2018 1:30[place] [address] R07.89 K21.9 K76.0 Office Visit 08/24/2017 3:15[place] [address] R12 K76.0 B96.81 R14.0 Office Visit 05/25/2017 3:45[place] [address] B96.81 R19.7 K76.0 R12 Office Visit 11/27/2014 3:35p Cardiology Office Sanford Terrell, 50626 786.50 M.D., [facility] Office Visit 11/26/2014 1:52p [facility] Magnus Gerardo, 08[address] 786.50 Medical Center M.D. Office Visit 01/20/2009 1:45p Cardiology Office Sanford Terrell, 49731 401.1 M.D., FACC 272.4 Office Visit 12/31/2008 10:30a Cardiology Office [place], [address] 786.50 M.D., FACC [phone] 272.4 Plan of Care Future Appointment(s):02/22/2019 3:00 pm - Lenore Richard M.D. at [id number] 1:40 pm - Sanford Terrell M.D., FACC at Cardiology [id number] 1:00 pm - Luigi Chery MD at GI08/24/2018 - Lenore Richard M.D.R39.198 Other difficulties with micturitionComments:Patient feels that she has to void but then only little urine comes out. I saw the patient had thiscould be due to constipation or rectal overloading with stool. Patient does not have any evidence of retention on today's postvoid residual which was around 50 cc. 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 She wants Dr. Encinas to do her internal exam as she is seeing her in 2 days. Discussed with her possibly placing her on estrogen replacement therapy transvaginally.Patient follow-up with me in 6 months for a postvoid residual
[2018-08-25 16:43] VITALS: BP 120/60
[2018-08-25] MEDS ORDERED: Acetaminophen TAB* 325 MG PO ONE ×2 (16:58→17:25)
--- NOTE | 2018-08-25 17:08 | UC ---
UC General HPI - HPI Summary HPI Summary: RASH TO TIP OF NOSE FOR ABOUT 15 DAYS. GOT MUCH WORSE AND PAINFUL OVER THE PAST 5 DAYS. PT AND DAUGHTER NOTE SOME COLD SORES UNDER THE NOSE AND IN NOSE. NO FEVER OR HEADACHE. PT HAD BEEN VISITING HER IN THE HOSPITAL THUS THEY ARE CONCERNED IT COULD BE MRSA. PT FINISHED AUGMENTIN 2 DAYS AGO FOR A URINARY INFECTION. 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 Onset/Duration: Gradual Onset Timing: Constant Pain Intensity: 7 Associated Signs & Symptoms: Negative: Fever, Headache - Allergy/Home Medications Allergies/Adverse Reactions: Allergies Allergy/AdvReac Type Severity Reaction Status Date / Time oxycodone [From Percocet] Allergy Rash Verified 08/25/18 16:43 Home Medications: Home Medications Atenolol 12.5 mg PO BID 08/25/18 [History Confirmed 08/25/18] Ubidecarenone [Coenzyme Q10] 100 mg PO DAILY 08/25/18 [History Confirmed ] PMH/Surg Hx/FS Hx/Imm Hx - Additional Past Medical History Additional PMH: urinary infection GI/ History: Gastroesophageal Reflux Other History Of: Negative For: HIV, Hepatitis B, Anticoagulant Therapy - status post Jorge - Surgical History Surgical History: Yes Surgery Procedure, Year, and Place: heart catheter, collagen plug removed from leg artery. cholecystectomy. Uterine/bladder prolapse and mesh sx--2008. Forearm artery removed due to collapse of same during cardiac cath procedure. Cataracts b/l - Family History Known Family History: Positive: Unknown, Hypertension Negative: Diabetes - Social History Occupation: Retired Alcohol Use: None Substance Use Type: None Smoking Status (MU): Former Smoker - Immunization History Vaccination Up to Date: Yes Review of Systems All Other Systems Reviewed And Are Negative: Yes Constitutional: Positive: Negative Skin: Positive: Rash - tip of nose Eyes: Positive: Negative ENT: Positive: Negative Respiratory: Positive: Negative Cardiovascular: Positive: Negative Gastrointestinal: Positive: Negative Genitourinary: Positive: Negative Motor: Positive: Negative Neurovascular: Positive: Negative Musculoskeletal: Positive: Negative Neurological: Positive: Negative Psychological: Positive: Negative Is Patient Immunocompromised?: No Physical Exam Triage Information Reviewed: Yes Appearance: Well-Appearing Vital Signs: Initial Vital Signs Temp 97.8 F 08/25/18 16:33 Pulse 76 08/25/18 16:33 Resp 20 08/25/18 16:33 BP 120/60 08/25/18 16:33 Pulse Ox 100 08/25/18 16:33 Vital Signs Reviewed: Yes Eyes: Positive: Conjunctiva Clear ENT: Positive: Pharynx normal, TMs normal, Other - Tip of nose is red and mildly swollen but not fluctuant. There are two alvarenga crusting areas to pt's columella. There is a superficial ulceration just inside the R nare. No auricular adenoapthy.. Negative: Nasal congestion, Nasal drainage, Sinus tenderness Neck: Positive: Supple, Other: - Pt notes mid L anterior mid cervical chain is tender but not enlarged notes appreciated. Respiratory: Positive: Lungs clear, Normal breath sounds Cardiovascular: Positive: RRR, No Murmur Abdomen Description: Positive: Nontender, No Organomegaly, Soft Bowel Sounds: Positive: Present Musculoskeletal: Positive: ROM Intact Neurological: Positive: Other: - A&O x3. s/p cataract, CN grossly intact. Psychological: Positive: Normal Response To Family, Age Appropriate Behavior Skin Exam: Normal Skin: Positive: Rashes - see ent Course/Dx - Course Course Of Treatment: pt recently finished augmentin. she was advised of risk for c-diff colitis with back to back antibiotics. pt and daughter are willing to take risk and benefit of tx out weighs risk of c-diff. pt advised to start probiotics. need fr close f/u stressed and go to er for any worsening as well to which they agree. will cover for possible mrsa and impetigo. - Diagnoses Provider Diagnosis: Cellulitis of nose Discharge - Sign-Out/Discharge Documenting (check all that apply): Patient Departure All imaging exams completed and their final reports reviewed: No - Discharge Plan Condition: Stable Disposition: HOME Prescriptions: Mupirocin 2% OINT* [Bactroban 2 % Oint*] 1 applic TOPICAL BID 7 Days #1 tube Sulfamethox/Trimethoprim DS* [Bactrim DS 800/160 TAB*] 1 tab PO BID 7 Days #14 tab Patient Education Materials: Cellulitis (ED) Referrals: Nasima Matias MD [Primary Care Provider] - 3 Days Additional Instructions: GO TO ER FOR ANY WORSENING. - Billing Disposition and Condition Condition: STABLE Disposition: Home
== END 2018-08-25 17:35 | disposition home or self-care (01) ==
LOC: UCCORT 15:52
DX: J34.0 Abscess, furuncle and carbuncle of nose (principal); Z88.5 Allergy status to narcotic agent; Z87.891 Personal history of nicotine dependence
CPT/HCPCS: 87070; 87205; 99212; A9270-GY; G0463

== ENCOUNTER 2018-09-14 17:10 | Emergency (ER) | payer MEDICARE ==
--- OUTSIDE RECORDS SUMMARY | 2018-09-14 19:03 | XMS REPORT ---
:1940 Author Name sound, ultra Care Team Providers Name Role Phone sound, ultra Unavailable Unavailable PROBLEMS Type Condition ICD9-CM Code [id number] Code Onset Condition SNOMED Code Dates Status Problem Abnormal findings R93.89 Active 979727953 on diagnostic imaging of other specified body structures Problem Pelvic and R10.2 Active 212020169 perineal pain Problem Rectocele N81.6 Active 460722871 Problem Unspecified R32 Active 869572610 urinary incontinence Problem Family history of Z80.3 Active 522436508 malignant neoplasm of breast Problem Cystocele, N81.10 Active 072398066 unspecified ALLERGIES No Information ENCOUNTERS Encounter Location Date Diagnosis [facility] [address] Sep, OBGYN [place], [place] [id number] [facility] [address] Aug, [place]BGYN [place], [place] [id number] [facility] 103 Aug, Pelvic and perineal pain OBGYN [facility], R10.2 and Abnormal [place] [id number] findings on diagnostic imaging of other specified body structures R93.89 [facility] 103 Aug, Pelvic and perineal pain OBGYN [facility], R10.2 [place] [id number] [facility] 103 Aug, Unspecified urinary OBGYN [facility], incontinence R32 ; [place] [id number] Family history of malignant neoplasm of breast Z80.3 ; Pelvic and perineal pain R10.2 ; Encounter for screening mammogram for malignant neoplasm of breast Z12.31 ; Unspecified lump in axillary tail of the left breast N63.32 ; Cystocele, unspecified N81.10 and Rectocele N81.6 [facility] 103 Jul, Unspecified urinary OBGYN [facility], incontinence R32 [place] [id number] [facility] 103 Jul, OBGYN [place], [place] [id number] IMMUNIZATIONS No Known Immunizations SOCIAL HISTORY Never Assessed REASON FOR REFERRAL FUNCTIONAL STATUS PLAN OF CARE Activity Details Pending Test Ultrasound : Pelvis VITAL SIGNS MEDICATIONS Unknown Medications PROCEDURES Procedure Date Ordered Result Body Site TRANSVAGINAL US, NON-OB Aug 31, 2018 RESULTS No Results 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 pelvic US Insurance Providers [facility] Member Patient Patient Patient Patient Patient Subscriber Subscriber Subscriber Group Insurance Plan Plan Plan Plan ID Relationship Address Phone Name Date of ID Name Date of No Type Insurance Insurance Insurance Coverage to Subscriber Address Phone Name Dates [facility] po box [phone] [facility] self Celina [id number] [facility] [address] [place] [address] Options [id number] Options h Medicare [phone] Medicare self Celina [id number] [facility] [place] [phone] MEDICAL (GENERAL) HISTORY Type Description Date Medical History Abnormal Results of cardivascular function stuides Medical History Chest pain. Medical History Benign Essential Hypertension Medical History Heartburn Medical History Helicobacter pylori Medical History Chronic non alcoholic liver disease Medical History Transient cerebral ischemia Medical History IBS Medical History Sleep apnea Surgical History Gallbladder removal 1961 Surgical History Tonsillectomy Surgical History Carpal tunnel- left wrist Surgical History Cataract Surgery- Both eyes. Surgical History Artery mesh repair. 1999 Surgical History Uterine bladder prolapse repair. 2010 Hospitalization History Uterine prolapose surgery Hospitalization History Gallbladder Hospitalization History Childbirth x3 Hospitalization History Severe back pain/Chest pain. 2018
--- OUTSIDE RECORDS SUMMARY | 2018-09-14 19:03 | XMS REPORT ---
:1940 Author Organization [facility] Address [address] [place] [address] Care Team Providers Name Role Phone Wilma Qureshi Unavailable Unavailable PROBLEMS Type Condition ICD9-CM Code NGG54-CX Code Onset Condition SNOMED Code Dates Status Problem Pelvic and R10.2 Active 628742056 perineal pain Problem Family history of Z80.3 Active 782054222 malignant neoplasm of breast Problem Unspecified R32 Active 590283114 urinary incontinence Problem Cystocele, N81.10 Active 958747155 unspecified Problem Rectocele N81.6 Active 619062159 ALLERGIES Substance Reaction Event Type Date Status EGGS Gas Drug Allergy Aug, Active Oxycodone Rash/ disoriented Drug Allergy Aug, Active Spicy foods Diahrrea Non Drug Allergy Aug, Active ENCOUNTERS Encounter Location Date Diagnosis [facility] [address] Sep, OBGYN [place], [place] [id number] [facility] [address] Aug, [place] [id number] [facility] 103 Aug, OBGYN [place] [id number] [facility] 103 Aug, Unspecified urinary OBGYN [facility], incontinence R32 ; [place] [id number] Family history of malignant neoplasm of breast Z80.3 ; Pelvic and perineal pain R10.2 ; Encounter for screening mammogram for malignant neoplasm of breast Z12.31 ; Unspecified lump in axillary tail of the left breast N63.32 ; Cystocele, unspecified N81.10 and Rectocele N81.6 [facility] 103 Jul, Unspecified urinary OBGYN [facility], incontinence R32 [place] [id number] [facility] [address] Jul, OBGYN [place], [place] [id number] IMMUNIZATIONS No Known Immunizations SOCIAL HISTORY Never Assessed REASON FOR REFERRAL FUNCTIONAL STATUS PLAN OF CARE Activity Details Follow Up Sign record release form and obtain records from previous [facility], US and f/u, schedule mammo and L breast US (targeted to axilla), schedule POP-Q, 6 month CBE Reason: Pending Test URINE CULTURE Pending Test URINALYSIS WITH MICROSCOPIC Pending Test Ultrasound : Breast, left Pending Test Mammogram, Diagnostic Bilateral VITAL SIGNS Height 62 in 2018-08-28 Weight 166 lbs 2018-08-28 BMI 30.36 kg/m2 2018-08-28 Blood pressure systolic 122 mm Hg 2018-08-28 Blood pressure diastolic 76 mm Hg 2018-08-28 MEDICATIONS Medication Instructions Dosage Frequency Start End Duration Status Date Date Tums 400mg 1 tablet 12h Active acetaminophen 500 orally every 6 2 tab(s) 6h Active mg hours atenolol 25 mg orally once a 1 tab(s) 24h Active day Gas Aide 125 mg orally 4 times a 1 cap(s) Aug, 2 days Active day (after meals 2017 and at bedtime) pantoprazole 40 orally once a 1 tab(s) 24h Active mg day resvertol po qd 1 tab 24h Active multivitamin orally once a 1 cap(s) 24h Active Multiple Vitamins day Co Q-10 100 mg orally once a 1 cap(s) 24h Active day Probiotic Formula as directed Active Bactrim 400 mg-80 orally 2 times a 2 tab(s) 12h Active mg day glucosamine 500 orally 3 times a 1 tab(s) 8h Active mg day PROCEDURES No Known procedures RESULTS No Results 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- 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 Insurance Providers [facility] Health Member Patient Patient Patient Patient Patient Subscriber Subscriber Subscriber Group Insurance Plan Plan Plan Plan ID Relationship Address Phone Name Date of ID Name Date of No Type Insurance Insurance Insurance Coverage to Subscriber Address Phone Name Dates AARP po box [phone] AARP self Celina [id number] [facility] [id number] [facility] Options [id number] Options h Medicare [phone] Medicare self Celina [id number] [place] [phone] MEDICAL (GENERAL) HISTORY Type Description Date Medical [...] 1999 Surgical History Uterine bladder prolapse repair. 2009 Hospitalization History Uterine prolapose surgery Hospitalization History Gallbladder Hospitalization History Childbirth x3 Hospitalization History Severe back pain/Chest pain. 2018
--- OUTSIDE RECORDS SUMMARY | 2018-09-14 19:03 | XMS REPORT ---
:1940 Author Organization [facility] Address [address] [place] [address] Care Team Providers Name Role Phone Wilma Qureshi Unavailable Unavailable PROBLEMS Type Condition ICD9-CM Code HAW12-TF Code Onset Condition SNOMED Code Dates Status Problem Abnormal findings R93.89 Active 760084938 on diagnostic imaging of other specified body structures Problem Pelvic and R10.2 Active 514673055 perineal pain Problem Rectocele N81.6 Active 899506440 Problem Unspecified R32 Active 764502997 urinary incontinence Problem Family history of Z80.3 Active 096460665 malignant neoplasm of breast Problem Cystocele, N81.10 Active 800618301 unspecified ALLERGIES Substance Reaction Event Type Date Status EGGS Gas Drug Allergy Aug, Active Oxycodone Rash/ disoriented Drug Allergy Aug, Active Spicy foods Diahrrea Non Drug Allergy Aug, Active ENCOUNTERS Encounter Location Date Diagnosis [facility] [address] Sep, [place]BGYN [place], [place] [id number] [facility] [address] Aug, [place], [place] [id number] [facility] 103 Aug, Pelvic and perineal pain OBGYN [facility], R10.2 and Abnormal [place] [id number] findings on diagnostic imaging of other specified body structures R93.89 [facility] 103 Aug, Pelvic and perineal pain OBGYN [facility], R10.2 [place] [id number] [facility] 103 Aug, Unspecified urinary OBGYN [facility], incontinence R32 ; [place] [id number] Family history of malignant neoplasm of breast Z80.3 ; Pelvic and perineal pain R10.2 ; Encounter for screening mammogram for malignant neoplasm of breast Z12.31 ; Unspecified lump in axillary tail of the left breast N63.32 ; Cystocele, unspecified N81.10 and Rectocele N81.6 [facility] 103 Jul, Unspecified urinary OBGYN [facility], incontinence R32 [place] [id number] [facility] 103 Jul, OBGYN [place], [place] [id number] IMMUNIZATIONS No Known Immunizations SOCIAL HISTORY Never Assessed REASON FOR REFERRAL FUNCTIONAL STATUS PLAN OF CARE Activity Details Follow Up To be determined Reason: VITAL SIGNS Height 62 in 2018-08-31 Weight 166 lbs 2018-08-31 BMI 30.36 kg/m2 2018-08-31 Blood pressure systolic 132 mm Hg 2018-08-31 Blood pressure diastolic 66 mm Hg 2018-08-31 MEDICATIONS Medication Instructions Dosage Frequency Start End Duration Status Date Date glucosamine 500 orally 3 times a 1 tab(s) 8h Active mg day resvertol po qd 1 tab 24h Active acetaminophen 500 orally every 6 2 tab(s) 6h Active mg hours multivitamin orally once a 1 cap(s) 24h Active Multiple Vitamins day Tums 400mg 1 tablet 12h Active atenolol 25 mg orally once a 1 tab(s) 24h Active day pantoprazole 40 orally once a 1 tab(s) 24h Active mg day Bactrim 400 mg-80 orally 2 times a 2 tab(s) 12h Active mg day Probiotic Formula as directed Active Gas Aide 125 mg orally 4 times a 1 cap(s) Aug, 2 days Active day (after meals 2017 and at bedtime) Co Q-10 100 mg orally once a 1 cap(s) 24h Active day PROCEDURES No Known procedures RESULTS No Results 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 [facility] Insurance Providers [facility] Member Patient Patient Patient Patient Patient Subscriber Subscriber Subscriber Group Insurance Plan Plan Plan Plan ID Relationship Address Phone Name Date of ID Name Date of No Type Insurance Insurance Insurance Coverage to Subscriber Address Phone Name Dates AARP po box [phone] AARP self Celina [id number] [facility] [id number] 00 [facility] Options [id number] Options h Medicare [phone] Medicare self Celina [id number] [place] [facility] [place] [phone] MEDICAL (GENERAL) HISTORY Type Description Date Medical [...]
[2018-09-14 19:15] VITALS: BP 137/58
--- NOTE | 2018-09-14 19:42 | UC ---
Back Pain HPI - HPI Summary HPI Summary: 78 yo woman with hx of lumbar spinal stenosis, with increased low back and left hip pain since sleeping on a sofa for several days at her son's house. This is similar to past episodes of back pain, and does have a sense of bilateral leg weakness, but no hx of urine leakage. - History of Current Complaint Chief Complaint: UCBackPain Stated Complaint: LOWER BACK PAIN Time Seen by Provider: 09/14/18 19:30 Hx Obtained From: Patient Onset/Duration: Gradual Onset, Lasting Days - 5 Timing: Constant Severity Initially: Moderate Severity Currently: Moderate Pain Intensity: 5 Back Pain: Is Diffuse, Radiates To - left hip and lateral thigh Character: Aching, Throbbing Aggravating Factor(s): Movement Alleviating Factor(s): Position, Other - walking relieves Associated Signs And Symptoms: Positive: Weakness - Allergies/Home Medications Allergies/Adverse Reactions: Allergies Allergy/AdvReac Type Severity Reaction Status Date / Time oxycodone [From Percocet] Allergy Rash Verified 09/14/18 19:05 PMH/Surg Hx/FS Hx/Imm Hx GI/ History: Gastroesophageal Reflux Other History Of: Negative For: HIV, Hepatitis B, Anticoagulant Therapy - status post Jorge - Surgical History Surgical History: Yes Surgery Procedure, Year, and Place: heart catheter, collagen plug removed from leg artery. cholecystectomy. Uterine/bladder prolapse and mesh sx--2008. Forearm artery removed due to collapse of same during cardiac cath procedure. Cataracts b/l - Family History Known Family History: Positive: Unknown, Hypertension Negative: Diabetes - Social History Occupation: Retired Lives: Alone - 2018 Alcohol Use: None Substance Use Type: None Smoking Status (MU): Former Smoker When Did the Patient Quit Smoking/Using Tobacco: 65 yrs ago - Immunization History Vaccination Up to Date: Yes Review of Systems All Other Systems Reviewed And Are Negative: Yes Constitutional: Positive: Fatigue Skin: Positive: Negative Eyes: Positive: Negative ENT: Positive: Negative Respiratory: Positive: Negative Cardiovascular: Positive: Negative Gastrointestinal: Positive: Negative Genitourinary: Positive: Frequency, Other - has had 4 UTI's within recent months , being evaluated by her JIGMAN Motor: Positive: Negative Neurovascular: Positive: Negative Musculoskeletal: Positive: Arthralgia, Myalgia Neurological: Positive: Negative Psychological: Positive: Anxious Is Patient Immunocompromised?: No Physical Exam Triage Information Reviewed: Yes Appearance: Well-Appearing, Pain Distress - moderate, seated uncomfortably on her chair. Vital Signs: Initial Vital Signs Temp 97.4 F 09/14/18 19:08 Pulse 74 09/14/18 19:08 Resp 16 09/14/18 19:08 BP 137/58 09/14/18 19:08 Pulse Ox 100 09/14/18 19:08 Neck: Positive: Supple, Nontender, No Lymphadenopathy Respiratory: Positive: Lungs clear, Normal breath sounds Cardiovascular: Positive: RRR, No Murmur Abdomen Description: Positive: Nontender, Soft Musculoskeletal Exam: Other - Antalgic gait, walks forward flexed at the waist. FF to 60 degrees, cannot extend or lateral bend. Hips with moderate decrease in rom but no pain with movement. Musculoskeletal: Positive: Strength Intact Neurological: Positive: Alert, Muscle Tone Normal Skin Exam: Normal Diagnostics - Laboratory Diagnostic Studies Completed/Ordered: UA with trace blood, nitrite and WBC neg Back Pain Course/Dx - Course Course Of Treatment: requests tylenol with codeine for back pain given lack of response to acetaminophen - Differential Dx/Diagnosis Differential Diagnosis/HQI/PQRI: Cauda Equina Syndrome, Herniated Disc, Strain, Sprain Provider Diagnosis: Lumbar stenosis Discharge - Sign-Out/Discharge Documenting (check all that apply): Patient Departure All imaging exams completed and their final reports reviewed: No Studies - Discharge Plan Condition: Stable Disposition: HOME Prescriptions: Acetaminophen with Codeine [Acetaminophen/Codeine Daniela 300-30 mg] 1 tab PO Q6H PRN #30 tab MDD 6 PRN Reason: Pain - Back Patient Education Materials: Back Pain (ED) Referrals: Nasima Matias MD [Primary Care Provider] - Additional Instructions: Use the minimim amount of tylenol with codeine needed due to risk of sedation and increased risk of falls. You have a referral to physical therapy. Ensure that you resume sleeping on a supportive surface. - Billing Disposition and Condition Condition: STABLE Disposition: Home
[2018-09-14] MEDS ORDERED: Acetaminop/Codeine 30 MG TAB* 1 TAB (300 MG/30 MG) PO ONE (20:26)
== END 2018-09-14 20:33 | disposition home or self-care (01) ==
LOC: UCCORT 17:10
DX: M48.061 Spinal stenosis, lumbar region without neurogenic claudication (principal); Z88.5 Allergy status to narcotic agent
CPT/HCPCS: 81003; 99212; A9270-GY; G0463

== ENCOUNTER 2018-12-04 11:29 | Emergency (ER) | payer MEDICARE ==
[2018-12-04 13:02] VITALS: BP 142/63
--- NOTE | 2018-12-04 13:37 | UC ---
Respiratory Complaint HPI - HPI Summary HPI Summary: Patient's had cold symptoms and a productive cough of yellowish-green sputum over the past week. She is scheduled for a D&C tomorrow due to thickening of the uterine lining as well as a possible dropped bladder and uterus. She thinks she may have had a low-grade fever but she has not measured it. She would also like her urine checked for urinary tract infection because of a history of that. She states she had an episode lasting less than 5 minutes a few days ago where she felt dizzy like she was going to pass out and she put her head down and that resolved spontaneously. She has had similar episodes in the past, for which she has followed up with her primary care provider who has done several tests and has not followed cosmetic. She denies any chest pain, denies nausea. - History of Current Complaint Chief Complaint: UCGeneralIllness Stated Complaint: EARS,FEVER Time Seen by Provider: 12/04/18 13:02 Hx Obtained From: Patient, Family/Box Inspector - Adult daughter is with her today ?: No Onset/Duration: Gradual Onset Timing: Constant Severity Initially: Mild Severity Currently: Mild Pain Intensity: 4 Character: Cough: Productive - Productive cough of yellowish-green sputum. She is a nonsmoker. He did not get a flu shot. She denies any history of asthma or COPD. Associated Signs And Symptoms: Positive: Fever - Patient thinks she may have had a low-grade fever., Nasal Congestion - Risk Factors Pulmonary Embolism Risk Factors: Negative Cardiac Risk Factors: Negative - History of atrial fib under good control with atenolol Pseudomonas Risk Factors: Negative Tuberculosis Risk Factors: Negative - Allergies/Home Medications Allergies/Adverse Reactions: Allergies Allergy/AdvReac Type Severity Reaction Status Date / Time ciprofloxacin [From Cipro] Allergy Disoriented, Verified 12/04/18 14:06 Dizziness, Rash oxycodone [From Percocet] Allergy Rash Verified 12/04/18 12:58 PMH/Surg Hx/FS Hx/Imm Hx Previously Healthy: Yes Cardiovascular History: Atrial Fibrillation - Under good control with atenolol GI/ History: Other - History of urinary tract infections. Other History Of: Negative For: HIV, Hepatitis B, Anticoagulant Therapy - status post Jorge - Surgical History Surgical History: Yes Surgery Procedure, Year, and Place: heart catheter, collagen plug removed from leg artery. cholecystectomy. Uterine/bladder prolapse and mesh sx--2008. Forearm artery removed due to collapse of same during cardiac cath procedure. Cataracts b/l - Family History Known Family History: Positive: Unknown, Hypertension Negative: Diabetes - Social History Occupation: Retired Lives: Alone Alcohol Use: None Substance Use Type: None Smoking Status (MU): Former Smoker When Did the Patient Quit Smoking/Using Tobacco: 1952 - Immunization History Vaccination Up to Date: Yes Review of Systems All Other Systems Reviewed And Are Negative: Yes Constitutional: Positive: Fever - Today she may have had a low-grade fever although she did not measure it. Skin: Positive: Negative Eyes: Positive: Negative ENT: Positive: Nasal Discharge - Nasal coryza that is all screen., Sinus Congestion, Other - Denies any ear pain however states her ears popping. Respiratory: Positive: Cough - Productive cough greenish yellow sputum, moist, congested cough. Distress. Cardiovascular: Positive: Negative Gastrointestinal: Positive: Negative Genitourinary: Positive: Negative - Patient denies any urinary symptoms however she would like her urine tested because she has a history of urinary tract infections especially prior to surgery tomorrow. Motor: Positive: Negative Neurovascular: Positive: Negative Musculoskeletal: Positive: Negative Neurological: Positive: Negative Psychological: Positive: Negative Is Patient Immunocompromised?: No Physical Exam Triage Information Reviewed: Yes Appearance: Well-Appearing, No Pain Distress, Well-Nourished Vital Signs: Initial Vital Signs Temp 98.5 F 12/04/18 12:55 Pulse 68 12/04/18 12:55 Resp 18 12/04/18 12:55 BP 142/63 12/04/18 12:55 Pulse Ox 99 12/04/18 12:55 Vital Signs Reviewed: Yes Eye Exam: Normal ENT: Positive: Hearing grossly normal, Pharynx normal, Nasal congestion, Nasal drainage - Initial nasal coryza and the right naris., TMs normal, Uvula midline. 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 Respiratory: Positive: No respiratory distress, No accessory muscle use, Rhonchi - Scattered rhonchi throughout him in no distress. Good air movement. Cardiovascular Exam: Normal Bowel Sounds: Positive: Present Musculoskeletal Exam: Normal Neurological Exam: Normal Neurological: Positive: Alert, Muscle Tone Normal Psychological Exam: Normal Psychological: Positive: Normal Response To Family Skin Exam: Normal Respiratory Course/Dx - Course Course Of Treatment: CXR: IMPRESSION: SMALL LEFT UPPER LOBE INFILTRATE. RECOMMEND FOLLOW-UP CHEST X-RAYS TO. RESOLUTION. Patient has been comfortable here. Advised to definitely follow up with her primary care provider prior to the antibiotic being completed. Patient's urine test was negative. She was not having any urinary symptoms however wanted checked prior to surgery tomorrow , which is now being canceled. - Differential Dx/Diagnosis Provider Diagnosis: Community acquired pneumonia Discharge - Sign-Out/Discharge Documenting (check all that apply): Patient Departure All imaging exams completed and their final reports reviewed: Yes - Discharge Plan Condition: Fair Disposition: HOME Prescriptions: DOXYcycline CAP(*) [DOXYcycline 100MG CAP(*)] 100 mg PO BID 10 Days #20 cap Patient Education Materials: Community Acquired Pneumonia (DC) Referrals: Nasima Matias MD [Primary Care Provider] - Additional Instructions: Increase fluids. Do not eat any dairy products, antacids or take her multivitamin 2 hours before you take the doxycycline and 2 hours after he took the doxycycline. Be sure and take the doxycycline with food to avoid an upset stomach. Cancel your surgery for tomorrow with Dr. Encinas. Call Dr. Matias's office today and make an appointment for follow-up. Advised them that you have a left upper lobe pneumonia, and you are started on doxycycline. They should make an appointment for you to be rechecked. Your urine test showed that you do not have any urinary tract infection. - Billing Disposition and Condition Condition: FAIR Disposition: Home - Attestation Statements Provider Attestation: I was available for consult. This patient was seen by the [facility]. The patient was not presented to, seen by, or examined by me. -Tisha
== END 2018-12-04 14:19 | disposition home or self-care (01) ==
LOC: UCCORT 11:29
DX: J18.9 Pneumonia, unspecified organism (principal); Y95 Nosocomial condition; I48.91 Unspecified atrial fibrillation; Z79.01 Long term (current) use of anticoagulants; Z87.891 Personal history of nicotine dependence
CPT/HCPCS: 71046; 81003; 99212; G0463

== ENCOUNTER 2019-03-23 18:20 | Emergency (ER) | payer MEDICARE ==
[2019-03-23 18:39] VITALS: BP 106/59
--- NOTE | 2019-03-23 19:14 | UC ---
Knee Pain HPI - HPI Summary HPI Summary: 78 yo female with right medial knee pain x 4 weeks onset after exercising fine at rest pain with use sharp pains when lifting leg wishes to have her urine checked because of frequent UTIs - History of Current Complaint Chief Complaint: UCLowerExtremity Stated Complaint: RIGHT KNEE PAIN Time Seen by Provider: 03/23/19 18:55 Hx Obtained From: Patient Onset/Duration: Sudden Onset Severity Initially: Mild Severity Currently: Mild Pain Intensity: 0 Pain Scale Used: 0-10 Numeric Character: Sharp Aggravating Factor(s): Movement, Weight Bearing Alleviating Factor(s): Rest Associated Signs And Symptoms: Positive: Negative Able to Bear Weight: Yes - Allergies/Home Medications Allergies/Adverse Reactions: Allergies Allergy/AdvReac Type Severity Reaction Status Date / Time ciprofloxacin [From Cipro] Allergy Disoriented, Verified 03/23/19 18:39 Dizziness, Rash oxycodone [From Percocet] Allergy Rash Verified 03/23/19 18:39 Home Medications: Home Medications [place]-3 Fatty Acids [[place]-3] 1,000 mg PO DAILY 03/23/19 [History Confirmed ] PMH/Surg Hx/FS Hx/Imm Hx Previously Healthy: Yes Other History Of: Negative For: HIV, Hepatitis B, Anticoagulant Therapy - status post Jorge - Surgical History Surgical History: Yes Surgery Procedure, Year, and Place: heart catheter, collagen plug removed from leg artery. cholecystectomy. Uterine/bladder prolapse and mesh sx--2008. Forearm artery removed due to collapse of same during cardiac cath procedure. Cataracts b/l - Family History Known Family History: Positive: Unknown, Hypertension Negative: Diabetes - Social History Alcohol Use: None Substance Use Type: None Smoking Status (MU): Former Smoker When Did the Patient Quit Smoking/Using Tobacco: 1952 - Immunization History Vaccination Up to Date: Yes Review of Systems All Other Systems Reviewed And Are Negative: Yes Constitutional: Positive: Negative Skin: Positive: Negative Eyes: Positive: Negative ENT: Positive: Negative Respiratory: Positive: Negative Cardiovascular: Positive: Negative Gastrointestinal: Positive: Negative Genitourinary: Positive: Negative Motor: Positive: Negative Neurovascular: Positive: Negative Musculoskeletal: Positive: Arthralgia Neurological: Positive: Negative Psychological: Positive: Negative Physical Exam Triage Information Reviewed: Yes Appearance: Well-Appearing, No Pain Distress, Well-Nourished Vital Signs: Initial Vital Signs Temp 98.2 F 03/23/19 18:31 Pulse 67 03/23/19 18:31 Resp 18 03/23/19 18:31 BP 106/59 03/23/19 18:31 Pulse Ox 98 03/23/19 18:31 Eye Exam: Normal Eyes: Positive: Conjunctiva Clear ENT: Negative: Nasal congestion, Nasal drainage, Trismus, Muffled voice, Hoarse voice Dental: Negative: Abscess @ Neck: Positive: Supple Respiratory: Positive: Lungs clear, Normal breath sounds, No respiratory distress, No accessory muscle use Cardiovascular: Positive: RRR, No Murmur Musculoskeletal: Positive: ROM Intact, No Edema, Other: - tender medial joint line R kne, normal gait, no effusion Neurological: Positive: Alert Psychological Exam: Normal Skin Exam: Normal Knee Pain Course/Dx - Course Course Of Treatment: XR machine down - Differential Dx/Diagnosis Provider Diagnosis: Right knee pain Discharge - Sign-Out/Discharge Documenting (check all that apply): Patient Departure All imaging exams completed and their final reports reviewed: No Studies - Discharge Plan Condition: Stable Disposition: HOME Patient Education Materials: Knee Pain (ED), R.I.C.E. Treatment (ED) Referrals: Nasima Matias MD [Primary Care Provider] - As Soon As Possible (contact your MD and see if they could order an outpt XR for you) Additional Instructions: tylenol our XR machine is down tonight your Urine was clear - Billing Disposition and Condition Condition: STABLE Disposition: Home
== END 2019-03-23 19:35 | disposition home or self-care (01) ==
LOC: UCCORT 18:20
DX: M25.561 Pain in right knee (principal); Z87.891 Personal history of nicotine dependence
CPT/HCPCS: 81003; 99212; G0463

== ENCOUNTER 2019-04-06 12:43 | Emergency (ER) | payer MEDICARE ==
[2019-04-06 13:13] VITALS: BP 143/52
--- NOTE | 2019-04-06 14:41 | UC ---
Knee Pain HPI - HPI Summary HPI Summary: Pt is accompanied by daughter. Pt states that ~ 4 weeks ago she had sudden onset of right knee pain after standing from sitting and "twisting just a little bit". The pt states that she began to wear an chava bandage and a knee brace and her knee began to feel better. Today, pt stated that she was walking in a store and had sudden onset of pain in right knee and it was worse than previous. - History of Current Complaint Chief Complaint: UCLowerExtremity Stated Complaint: RIGHT KNEE PAIN Time Seen by Provider: 04/06/19 13:40 Hx Obtained From: Patient ?: No Onset/Duration: Sudden Onset, Lasting Days, Still Present Severity Initially: Moderate Severity Currently: Severe Pain Intensity: 10 Character: Dull, Aching, Throbbing, Stiffness Aggravating Factor(s): Movement, Weight Bearing, Prolonged Standing, Stairs Alleviating Factor(s): Rest, Position Associated Signs And Symptoms: Positive: Swelling Able to Bear Weight: Yes - minimal - Risk Factors Septic Arthritis Risk Factor: Extremes of Age Gout Risk Factor: Age ^ 40 - Allergies/Home Medications Allergies/Adverse Reactions: Allergies Allergy/AdvReac Type Severity Reaction Status Date / Time ciprofloxacin [From Cipro] Allergy Disoriented, Verified 04/06/19 13:13 Dizziness, Rash oxycodone [From Percocet] Allergy Rash Verified 04/06/19 13:13 Home Medications: Home Medications Ibuprofen TAB* [Motrin TAB* 400 MG] 400 mg PO DAILY PRN 04/06/19 [History Confirmed 04/06/19] PMH/Surg Hx/FS Hx/Imm Hx Previously Healthy: Yes Cardiovascular History: Cardiac Disease, Hypertension Other History Of: Negative For: HIV, Hepatitis B, Anticoagulant Therapy - status post Jorge - Surgical History Surgical History: Yes Surgery Procedure, Year, and Place: heart catheter, collagen plug removed from leg artery. cholecystectomy. Uterine/bladder prolapse and mesh sx--2008. Forearm artery removed due to collapse of same during cardiac cath procedure. Cataracts b/l - Family History Known Family History: Positive: Unknown, Hypertension Negative: Diabetes - Social History Occupation: Retired Lives: Alone Alcohol Use: None Substance Use Type: None Smoking Status (MU): Former Smoker Have You Smoked in the Last Year: No When Did the Patient Quit Smoking/Using Tobacco: 1952 - Immunization History Vaccination Up to Date: Yes Review of Systems All Other Systems Reviewed And Are Negative: Yes Constitutional: Positive: Negative Skin: Positive: Negative Eyes: Positive: Negative ENT: Positive: Negative Respiratory: Positive: Negative Cardiovascular: Positive: Negative Gastrointestinal: Positive: Negative Genitourinary: Positive: Negative Motor: Positive: Negative Neurovascular: Positive: Negative Musculoskeletal: Positive: Arthralgia, Decreased ROM, Edema, Myalgia Neurological: Positive: Negative Psychological: Positive: Negative Is Patient Immunocompromised?: No Physical Exam Triage Information Reviewed: Yes Appearance: Pain Distress - with examination of right knee Vital Signs: Initial Vital Signs Temp 97.9 F 04/06/19 13:07 Pulse 72 04/06/19 13:07 Resp 18 04/06/19 13:07 BP 143/52 04/06/19 13:07 Pulse Ox 99 04/06/19 13:07 Vital Signs Reviewed: Yes Eye Exam: Normal ENT Exam: Normal ENT: Positive: Hearing grossly normal Dental Exam: Normal Neck exam: Normal Respiratory: Positive: No respiratory distress Musculoskeletal: Positive: Strength Limited @ - right knee, ROM Limited @ - right knee, Other: - c/o pain right medial aspect of knee Neurological Exam: Normal Psychological Exam: Normal Skin Exam: Normal Diagnostics - Radiology No standard instances Radiology Interpretation Completed By: Radiologist - BONE DENSITY: There is diffuse osteopenia. BONES: There is no displaced fracture. There are superior and inferior patellar enthesophytes. There is a well-corticated bone fragment off the lateral patella suggestive of remote injury. JOINTS: There is mild tricompartmental osteoarthritis. There is no suprapatellar joint effusion or lipohemarthrosis. ALIGNMENT: There is no dislocation. SOFT TISSUES: Unremarkable. OTHER FINDINGS: None. IMPRESSION: OSTEOPENIA. NO ACUTE OSSEOUS INJURY. IF SYMPTOMS PERSIST, RECOMMEND REPEAT IMAGING . Knee Pain Course/Dx - Differential Dx/Diagnosis Differential Diagnosis/HQI/PQRI: Internal Derangement Of Knee Provider Diagnosis: Right knee pain Discharge - Sign-Out/Discharge Documenting (check all that apply): Patient Departure All imaging exams completed and their final reports reviewed: Yes - Discharge Plan Condition: Stable Disposition: HOME Patient Education Materials: Knee Pain (ED), Ice Pack Application (ED) Referrals: Nasima Matias MD [Primary Care Provider] - If Needed Arlen Blair MD [Medical Doctor] - As Soon As Possible - Billing Disposition and Condition Condition: STABLE Disposition: Home
== END 2019-04-06 14:51 | disposition home or self-care (01) ==
LOC: UCCORT 12:43
DX: M25.561 Pain in right knee (principal); X50.1XXA Overexertion from prolonged static or awkward postures, initial encounter; Y92.9 Unspecified place or not applicable; I11.9 Hypertensive heart disease without heart failure; Z87.891 Personal history of nicotine dependence
CPT/HCPCS: 99211; G0463

== ENCOUNTER 2022-03-14 13:30 | Inpatient (IN) ==
[2022-03-14] MEDS ORDERED: Lactated Ringers 1000 ml BAG 1,000 ML IV ONE ×2 (13:51→16:21)
[2022-03-14] MEDS ORDERED: Ondansetron 4 mg VIAL 2 MG/ML 2 ml VIAL IV ONE (13:51)
[2022-03-14] MEDS ORDERED: Acetaminophen IV 1 GM/100ML 100 ML IV ONE (13:52)
[2022-03-14 14:09] LABS: ABS Eosinophils 0.1 10^3/ul (0-0.6); ABS Lymphocytes 0.8 10^3/ul (1.0-4.8); ABS Monocytes 1.3 10^3/ul (0-0.8); ABS Neutrophils 14.4 10^3/ul (1.5-7.7); Eosinophil % 0.4 %; Hematocrit 40 % (35-47); Hemoglobin 12.9 g/dL (12.0-16.0); Mean Corpuscular HGB Conc 33 g/dL (31-36); Mean Corpuscular Hemoglobin 31 pg (27-31); Mean Corpuscular Volume 94 fL (80-97); Mean Platelet Volume 8.8 fL (7.4-10.4); Platelet Count 250 10^3/uL (150-450); Red Cell Distribution Width 13 % (10-15); White Blood Count 16.5 10^3/uL (3.5-10.8)
[2022-03-14 14:15] LABS: Activated Partial Thrombo Time 42.2 seconds (26.0-38.0); INR 1.07 (0.86-1.15)
[2022-03-14 15:37] LABS: Albumin 3.8 g/dL (3.2-5.2); Albumin/Globulin Ratio 1.2 (1-3); C Reactive Protein 52.02 mg/L (<8.01); Calcium 8.8 mg/dL (8.6-10.3); Globulin 3.2 g/dL (2-4); Potassium 4.1 mmol/L (3.5-5.0); eGFR CKD-EPI 42.4 (>60)
[2022-03-14 15:51] LABS: High Sensitivity Troponin 1 Hr 10 pg/mL (<15)
[2022-03-14 16:01] LABS: Urine Appearance Turbid; Urine Bilirubin Negative (Negative); Urine Blood 2+ (Negative); Urine Color Yellow; Urine Glucose Negative (Negative); Urine Ketones Negative (Negative); Urine Nitrite Negative (Negative); Urine Protein 1+(30 mg/dL) (Negative); Urine Specific Gravity 1.017 (1.002-1.030); Urine Urobilinogen Negative (Negative)
[2022-03-14 16:06] LABS: Urine Bacteria 1+ (Absent); Urine Red Blood Cell 3+(>10/hpf) (Absent); Urine Squamous Epithelial Cell Present (Absent); Urine White Blood Cell 3+(>20/hpf) (Absent); Urine Yeast Present (Absent)
[2022-03-14] MEDS ORDERED: cefTRIAXone 2 gm/50 mL D5W 2 GM/50 ML BAG IV ONE (16:21)
[2022-03-14] MEDS ORDERED: NS 0.9% 1000 ml BAG 1,000 ML IV SCH (17:45)
[2022-03-14] MEDS: Heparin 5000 UNITS/ML 1 mL VIAL SUBCUT SCH (22:30)
[2022-03-15] MEDS: Heparin 5000 UNITS/ML 1 mL VIAL SUBCUT SCH (05:25)
[2022-03-15 05:44] LABS: ABS Lymphocytes 1.4 10^3/ul (1.0-4.8); ABS Monocytes 1.2 10^3/ul (0-0.8); ABS Neutrophils 9.5 10^3/ul (1.5-7.7); Eosinophil % 0.3 %; Hematocrit 31 % (35-47); Hemoglobin 10.3 g/dL (12.0-16.0); Lymphocyte % 11.8 %; Mean Corpuscular HGB Conc 34 g/dL (31-36); Mean Corpuscular Hemoglobin 31 pg (27-31); Mean Corpuscular Volume 94 fL (80-97); Mean Platelet Volume 8.5 fL (7.4-10.4); Platelet Count 175 10^3/uL (150-450); Red Blood Count 3.27 10^6 /uL (3.70-4.87); Red Cell Distribution Width 13 % (10-15); White Blood Count 12.2 10^3/uL (3.5-10.8)
[2022-03-15 07:03] LABS: C Reactive Protein 122.83 mg/L (<8.01); Calcium 7.9 mg/dL (8.6-10.3); Potassium 3.4 mmol/L (3.5-5.0); eGFR CKD-EPI 48.3 (>60)
[2022-03-15] MEDS ORDERED: Potassium Chlor 20 meq TAB.ER PO ONE (07:18)
[2022-03-15 07:50] LABS: Magnesium 1.6 mg/dL (1.9-2.7)
[2022-03-15] MEDS ORDERED: Magnesium Sulf 4 GM/100 ML IV 4,000 MG/100 ML BAG IVPB ONE (08:25)
[2022-03-15] MEDS: Enoxaparin 40 MG/0.4 ML SYR SUBCUT SCH ×2 (09:48→10:07)
[2022-03-15] MEDS: cefTRIAXone 1 gm/50 mL D5W 1 GM/50 ML BAG IV SCH (15:58)
[2022-03-16 04:39] LABS: ABS Basophils 0.1 10^3/ul (0-0.2); ABS Eosinophils 0.1 10^3/ul (0-0.6); ABS Lymphocytes 1.5 10^3/ul (1.0-4.8); ABS Neutrophils 9.4 10^3/ul (1.5-7.7); Eosinophil % 0.9 %; Hematocrit 32 % (35-47); Hemoglobin 10.7 g/dL (12.0-16.0); Lymphocyte % 12.2 %; Mean Corpuscular HGB Conc 33 g/dL (31-36); Mean Corpuscular Hemoglobin 31 pg (27-31); Mean Corpuscular Volume 94 fL (80-97); Mean Platelet Volume 8.7 fL (7.4-10.4); Platelet Count 193 10^3/uL (150-450); Red Blood Count 3.42 10^6 /uL (3.70-4.87); Red Cell Distribution Width 13 % (10-15)
[2022-03-16 05:29] LABS: Anion Gap 9 mmol/L (2-11); Blood Urea Nitrogen 18 mg/dL (6-24); CO2 Carbon Dioxide 24 mmol/L (22-32); Chloride 107 mmol/L (101-111); Glucose 118 mg/dL (70-100); Magnesium 2.3 mg/dL (1.9-2.7); Potassium 3.7 mmol/L (3.5-5.0); Sodium 140 mmol/L (135-145); eGFR CKD-EPI 39.3 (>60)
[2022-03-16] MEDS ORDERED: Lactated Ringers 1000 ml BAG 1,000 ML IV ONE (07:29)
[2022-03-16] MEDS ORDERED: Ondansetron 4 mg VIAL 2 MG/ML 2 ml VIAL ONE (07:45)
[2022-03-16] MEDS ORDERED: Ondansetron ODT 4 mg TAB 4 MG TAB ONE (07:48)
[2022-03-16] MEDS: Ondansetron ODT 4 mg TAB 4 MG TAB SL PRN (07:50)
[2022-03-16 09:09] LABS: Lipase < 10 U/L (11.0-82.0)
[2022-03-16] MEDS: Enoxaparin 40 MG/0.4 ML SYR SUBCUT SCH (09:38)
[2022-03-16] MEDS ORDERED: Acetaminophen IV 1 GM/100ML 100 ML IV ONE (09:57)
[2022-03-16 13:24] LABS: Urine Appearance Cloudy; Urine Color Yellow; Urine Ketones Negative (Negative); Urine Protein Negative (Negative); Urine Specific Gravity 1.015 (1.005-1.030); Urine Urobilinogen 0.2 (Negative) (Negative); Urine pH 5.5 (5.0-9.0)
[2022-03-16 13:25] LABS: Urine Bilirubin Negative (Negative); Urine Blood 1+ (Small) (Negative); Urine Glucose Negative (Negative); Urine Nitrite Negative (Negative)
[2022-03-16 13:36] LABS: Urine Bacteria Absent (Absent); Urine Red Blood Cell 2+(6-10/hpf) (Absent); Urine Squamous Epithelial Cell Present (Absent); Urine White Blood Cell 3+(>20/hpf) (Absent); Urine Yeast Present (Absent)
[2022-03-16] MEDS: cefTRIAXone 1 gm/50 mL D5W 1 GM/50 ML BAG IV SCH (16:10)
[2022-03-17 07:23] LABS: ABS Basophils 0.1 10^3/ul (0-0.2); ABS Eosinophils 0.1 10^3/ul (0-0.6); ABS Lymphocytes 0.8 10^3/ul (1.0-4.8); ABS Neutrophils 11.2 10^3/ul (1.5-7.7); Eosinophil % 0.7 %; Hematocrit 31 % (35-47); Hemoglobin 10.3 g/dL (12.0-16.0); Lymphocyte % 6.1 %; Mean Corpuscular HGB Conc 33 g/dL (31-36); Mean Corpuscular Hemoglobin 32 pg (27-31); Mean Corpuscular Volume 95 fL (80-97); Mean Platelet Volume 8.5 fL (7.4-10.4); Platelet Count 209 10^3/uL (150-450); Red Blood Count 3.25 10^6 /uL (3.70-4.87); Red Cell Distribution Width 13 % (10-15); White Blood Count 13.2 10^3/uL (3.5-10.8)
[2022-03-17 08:15] LABS: Calcium 8.2 mg/dL (8.6-10.3); Phosphorus 2.9 mg/dL (2.5-5.0); Potassium 3.8 mmol/L (3.5-5.0); eGFR CKD-EPI 37.7 (>60)
[2022-03-17] MEDS: Enoxaparin 40 MG/0.4 ML SYR SUBCUT SCH (09:02)
[2022-03-17 11:52] LABS: C Reactive Protein 244.1 mg/L (<8.01)
[2022-03-17] MEDS: Linezolid 600 MG IVPREMIX(*) 600 MG/300 ML BAG IVPB SCH (16:17)
[2022-03-17] MEDS: Ondansetron ODT 4 mg TAB 4 MG TAB SL PRN (23:35)
[2022-03-18 05:49] LABS: ABS Eosinophils 0.2 10^3/ul (0-0.6); ABS Lymphocytes 1.3 10^3/ul (1.0-4.8); Eosinophil % 1.4 %; Hematocrit 31 % (35-47); Hemoglobin 10.4 g/dL (12.0-16.0); Lymphocyte % 11.5 %; Mean Corpuscular HGB Conc 34 g/dL (31-36); Mean Corpuscular Hemoglobin 32 pg (27-31); Mean Corpuscular Volume 96 fL (80-97); Platelet Count 233 10^3/uL (150-450); Red Blood Count 3.23 10^6 /uL (3.70-4.87); Red Cell Distribution Width 13 % (10-15); White Blood Count 11.6 10^3/uL (3.5-10.8)
[2022-03-18] MEDS: Linezolid 600 MG IVPREMIX(*) 600 MG/300 ML BAG IVPB SCH ×2 (05:51→18:15)
[2022-03-18 06:01] LABS: Albumin/Globulin Ratio 1.1 (1-3); Calcium 8.3 mg/dL (8.6-10.3); Globulin 2.8 g/dL (2-4); Potassium 3.7 mmol/L (3.5-5.0); Total Bilirubin 0.5 mg/dL (0.2-1.0); Total Protein 5.8 g/dL (6.4-8.9); eGFR CKD-EPI 32.8 (>60)
[2022-03-18] MEDS: Enoxaparin 40 MG/0.4 ML SYR SUBCUT SCH (07:49)
[2022-03-18] MEDS ORDERED: Lactated Ringers 1000 ml BAG 1,000 ML IV SCH (08:00)
[2022-03-18] MEDS: Cefepime 1 GM in Dextrose 1 GM/50 ML BAG IV SCH ×2 (11:42→21:06)
[2022-03-18 20:53] LABS: Folate 5.62 ng/mL (5.90-24.80)
[2022-03-19] MEDS: Linezolid 600 MG IVPREMIX(*) 600 MG/300 ML BAG IVPB SCH ×2 (06:13→18:35)
[2022-03-19 06:24] LABS: Hematocrit 31 % (35-47); Hemoglobin 10.1 g/dL (12.0-16.0); Mean Corpuscular HGB Conc 33 g/dL (31-36); Mean Corpuscular Hemoglobin 31 pg (27-31); Mean Corpuscular Volume 96 fL (80-97); Mean Platelet Volume 8.7 fL (7.4-10.4); Platelet Count 261 10^3/uL (150-450); Red Blood Count 3.22 10^6 /uL (3.70-4.87); Red Cell Distribution Width 13 % (10-15)
[2022-03-19 06:41] LABS: Calcium 8.3 mg/dL (8.6-10.3); Potassium 3.9 mmol/L (3.5-5.0); eGFR CKD-EPI 33.8 (>60)
[2022-03-19] MEDS ORDERED: Iohexol 180 (CONTRAST) 10 ML SDV IV ONE ×2 (07:01→07:15)
[2022-03-19] MEDS ORDERED: Midazolam 5 mg/5 ml VIAL 1 mg/ml 5 ml VIAL (5 mg) ONE (07:41)
[2022-03-19] MEDS ORDERED: Famotidine IV 10 MG/ML 2 ml VIAL (20 mg) ONE (07:41)
[2022-03-19] MEDS ORDERED: fentaNYL 100 mcg/2 ml 50 MCG/ML VIAL ONE (07:41)
[2022-03-19] MEDS ORDERED: Lidocaine 2% PF 5 ML VIAL ONE (07:57)
[2022-03-19] MEDS ORDERED: Propofol 10 MG/ML 20 ML BTL ONE (07:57)
[2022-03-19] MEDS ORDERED: Phenylephrine IV 10 MG/ML 1 ml VIAL ONE (08:11)
[2022-03-19] MEDS ORDERED: Ondansetron 4 mg VIAL 2 MG/ML 2 ml VIAL ONE (08:25)
[2022-03-19 08:26] LABS: RBC Morphology Normal (Normal)
[2022-03-19 08:33] LABS: ABS Eosinophils 0.1 10^3/ul (0-0.6); ABS Lymphocytes 1.6 10^3/ul (1.0-4.8); ABS Neutrophils 8.9 10^3/ul (1.5-7.7)
[2022-03-19] MEDS: Enoxaparin 30 MG/0.3 ML SYR SUBCUT SCH (09:41)
[2022-03-19] MEDS: Cefepime 1 GM in Dextrose 1 GM/50 ML BAG IV SCH ×2 (09:42→20:54)
[2022-03-20] MEDS: Linezolid 600 MG IVPREMIX(*) 600 MG/300 ML BAG IVPB SCH (05:40)
[2022-03-20 06:55] LABS: Hematocrit 28 % (35-47); Hemoglobin 9.4 g/dL (12.0-16.0); Mean Corpuscular HGB Conc 34 g/dL (31-36); Mean Corpuscular Hemoglobin 32 pg (27-31); Mean Corpuscular Volume 95 fL (80-97); Platelet Count 295 10^3/uL (150-450); Red Blood Count 2.94 10^6 /uL (3.70-4.87); Red Cell Distribution Width 13 % (10-15); White Blood Count 8.3 10^3/uL (3.5-10.8)
[2022-03-20 07:45] LABS: C Reactive Protein 203.14 mg/L (<8.01); Potassium 3.7 mmol/L (3.5-5.0); eGFR CKD-EPI 36.4 (>60)
[2022-03-20 08:17] LABS: ABS Basophils 0.1 10^3/ul (0-0.2); ABS Eosinophils 0.2 10^3/ul (0-0.6); ABS Lymphocytes 1.6 10^3/ul (1.0-4.8); ABS Monocytes 0.9 10^3/ul (0-0.8); ABS Neutrophils 5.5 10^3/ul (1.5-7.7); Eosinophil % 2.6 %; Lymphocyte % 19.3 %
[2022-03-20] MEDS: Enoxaparin 30 MG/0.3 ML SYR SUBCUT SCH (08:18)
[2022-03-20] MEDS: Cefepime 1 GM in Dextrose 1 GM/50 ML BAG IV SCH (08:18)
[2022-03-20 12:25] VITALS: BP 128/52
[2022-03-20] MEDS ORDERED: Amoxicillin/Clavul 875/125 TAB (Augmentin 875 tab) PO SCH (21:00)
== END 2022-03-20 14:50 | disposition home health service (06) | DRG 853 ==
LOC: EDHOLD 13:30 → ED 13:30 → SSU 13:45 → SUATTDRO 17:45 → SSU 20:35 → SUATTDRO 03-15 17:00 → UNDODISIN 03-16 14:20 → MED 03-18 04:08
PROVIDERS: ADMIT Family Medicine; ATTEND Internal Medicine

== ENCOUNTER 2022-05-27 13:24 | Inpatient (IN) ==
[2022-05-27] MEDS ORDERED: NS 0.9% 1000 ml BAG 1,000 ML IV ONE (14:02)
[2022-05-27 14:54] LABS: ABS Basophils 0.1 10^3/ul (0-0.2); ABS Eosinophils 0.2 10^3/ul (0-0.6); ABS Monocytes 0.5 10^3/ul (0-0.8); ABS Neutrophils 3.9 10^3/ul (1.5-7.7); Eosinophil % 3.1 %; Hematocrit 34 % (35-47); Lymphocyte % 30.6 %; Mean Corpuscular HGB Conc 33 g/dL (31-36); Mean Corpuscular Hemoglobin 30 pg (27-31); Mean Corpuscular Volume 92 fL (80-97); Platelet Count 299 10^3/uL (150-450); Red Blood Count 3.64 10^6 /uL (3.70-4.87); Red Cell Distribution Width 16 % (10-15); White Blood Count 6.7 10^3/uL (3.5-10.8)
[2022-05-27] MEDS ORDERED: Morphine 4 MG/ML VIAL (1 ml) IV ONE (15:00)
[2022-05-27] MEDS ORDERED: Ondansetron 4 mg VIAL 2 MG/ML 2 ml VIAL IV ONE (15:00)
[2022-05-27 15:35] LABS: Albumin 3.9 g/dL (3.2-5.2); Calcium 9.6 mg/dL (8.6-10.3); Globulin 3.9 g/dL (2-4); Magnesium 1.9 mg/dL (1.9-2.7); Total Bilirubin 0.4 mg/dL (0.2-1.0); Total Protein 7.8 g/dL (6.4-8.9)
[2022-05-27 15:36] LABS: Potassium 4.4 mmol/L (3.5-5.0)
[2022-05-27 15:49] LABS: TSH Ultra Thyroid Stim Horm 3.06 mcIU/mL (0.34-5.60)
[2022-05-27 15:49] LABS: Urine Appearance Slightly Cloudy; Urine Bilirubin Negative (Negative); Urine Color Straw; Urine Glucose Negative (Negative); Urine Ketones Negative (Negative)
[2022-05-27 15:50] LABS: Urine Blood 3+ (Large) (Negative); Urine Nitrite Negative (Negative); Urine Protein Trace (Negative); Urine Urobilinogen 0.2 (Negative) (Negative); Urine pH 5.5 (5.0-9.0)
[2022-05-27 16:02] LABS: Urine Bacteria 1+ (Absent); Urine Red Blood Cell 3+(>10/hpf) (Absent); Urine Squamous Epithelial Cell Present (Absent); Urine White Blood Cell 2+(11-20/hpf) (Absent)
[2022-05-27] MEDS ORDERED: Morphine 2 MG/ML SYRINGE IV PRN (17:38)
[2022-05-27] MEDS ORDERED: Iohexol 350 (CONTRAST) 500 ML MDV IV ONE (18:07)
[2022-05-28] MEDS: Sucralfate 1 gm SUSP 1 GM/10 ML UDC PO SCH ×3 (00:18→21:20)
[2022-05-28 05:24] LABS: ABS Basophils 0.1 10^3/ul (0-0.2); ABS Eosinophils 0.3 10^3/ul (0-0.6); ABS Lymphocytes 2.5 10^3/ul (1.0-4.8); ABS Monocytes 0.5 10^3/ul (0-0.8); ABS Neutrophils 3.3 10^3/ul (1.5-7.7); Eosinophil % 4.2 %; Hematocrit 30 % (35-47); Hemoglobin 9.9 g/dL (12.0-16.0); Lymphocyte % 37.4 %; Mean Corpuscular HGB Conc 33 g/dL (31-36); Mean Corpuscular Hemoglobin 30 pg (27-31); Mean Corpuscular Volume 93 fL (80-97); Mean Platelet Volume 7.6 fL (7.4-10.4); Platelet Count 255 10^3/uL (150-450); Red Blood Count 3.26 10^6 /uL (3.70-4.87); Red Cell Distribution Width 16 % (10-15); White Blood Count 6.7 10^3/uL (3.5-10.8)
[2022-05-28 06:06] LABS: Potassium 4.2 mmol/L (3.5-5.0); eGFR CKD-EPI 61.8 (>60)
[2022-05-28 08:15] LABS: Ferritin 143.7 ng/mL (11-307)
[2022-05-28] MEDS: Cholecalciferol (VIT D3) 1,000 unit TAB PO SCH (11:19)
[2022-05-28] MEDS ORDERED: HYDROcodone/ACETAMIN 5/325 mg TAB PO PRN (11:20)
[2022-05-28 12:15] LABS: Folate 13.41 ng/mL (5.90-24.80)
[2022-05-28] MEDS ORDERED: Acetaminophen IV 1 GM/100ML 1,000 MG/100 ML BAG IV PRN (16:04)
[2022-05-29 06:24] LABS: ABS Basophils 0.1 10^3/ul (0-0.2); ABS Eosinophils 0.3 10^3/ul (0-0.6); ABS Lymphocytes 1.7 10^3/ul (1.0-4.8); ABS Monocytes 0.5 10^3/ul (0-0.8); ABS Neutrophils 4.2 10^3/ul (1.5-7.7); Eosinophil % 4.2 %; Hematocrit 31 % (35-47); Mean Corpuscular HGB Conc 33 g/dL (31-36); Mean Corpuscular Hemoglobin 31 pg (27-31); Mean Corpuscular Volume 94 fL (80-97); Mean Platelet Volume 8.1 fL (7.4-10.4); Platelet Count 245 10^3/uL (150-450); Red Blood Count 3.27 10^6 /uL (3.70-4.87); Red Cell Distribution Width 16 % (10-15); White Blood Count 6.8 10^3/uL (3.5-10.8)
[2022-05-29 06:44] LABS: Calcium 9.2 mg/dL (8.6-10.3); Magnesium 1.8 mg/dL (1.9-2.7); Potassium 4.3 mmol/L (3.5-5.0)
[2022-05-29] MEDS: Sucralfate 1 gm SUSP 1 GM/10 ML UDC PO SCH ×2 (08:29→20:47)
[2022-05-29] MEDS: Cholecalciferol (VIT D3) 1,000 unit TAB PO SCH (08:31)
[2022-05-29] MEDS ORDERED: Morphine 2 MG/ML SYRINGE IV PRN (11:34)
[2022-05-29] MEDS ORDERED: Magnesium Sulfate IV 1GM/100ML 1 GM/100 ML BAG IV ONE (16:33)
[2022-05-29] MEDS: HYDROcodone/ACETAMIN 5/325 mg TAB PO PRN (16:56)
[2022-05-30] MEDS: HYDROcodone/ACETAMIN 5/325 mg TAB PO PRN (06:37)
[2022-05-30] MEDS: Cholecalciferol (VIT D3) 1,000 unit TAB PO SCH (08:37)
[2022-05-30] MEDS: Sucralfate 1 gm SUSP 1 GM/10 ML UDC PO SCH ×2 (08:37→20:03)
[2022-05-30] MEDS ORDERED: Polyethylene Glycol 3350 17 GM PACKET PO PRN (16:08)
[2022-05-30] MEDS ORDERED: Senna TAB 8.6 mg TAB PO PRN (16:08)
[2022-05-30] MEDS ORDERED: Magnesium Hydroxide LIQ 30 ML UDC PO PRN (16:08)
[2022-05-31] MEDS: HYDROcodone/ACETAMIN 5/325 mg TAB PO PRN ×2 (03:03→17:35)
[2022-05-31 07:43] LABS: ABS Basophils 0.1 10^3/ul (0-0.2); ABS Eosinophils 0.3 10^3/ul (0-0.6); ABS Lymphocytes 2.4 10^3/ul (1.0-4.8); ABS Monocytes 0.5 10^3/ul (0-0.8); ABS Neutrophils 2.8 10^3/ul (1.5-7.7); Eosinophil % 4.3 %; Hematocrit 29 % (35-47); Hemoglobin 9.7 g/dL (12.0-16.0); Lymphocyte % 39.6 %; Mean Corpuscular HGB Conc 33 g/dL (31-36); Mean Corpuscular Hemoglobin 31 pg (27-31); Mean Corpuscular Volume 94 fL (80-97); Mean Platelet Volume 7.8 fL (7.4-10.4); Platelet Count 241 10^3/uL (150-450); Red Blood Count 3.12 10^6 /uL (3.70-4.87); Red Cell Distribution Width 16 % (10-15)
[2022-05-31 08:11] LABS: Calcium 9.2 mg/dL (8.6-10.3); Magnesium 1.7 mg/dL (1.9-2.7); Potassium 4.1 mmol/L (3.5-5.0)
[2022-05-31] MEDS: Sucralfate 1 gm SUSP 1 GM/10 ML UDC PO SCH ×2 (09:25→22:12)
[2022-05-31] MEDS ORDERED: Magnesium Sulfate 2 gm BAG 2 GM/50 ML BAG IVPB ONE (09:33)
[2022-05-31] MEDS: Cholecalciferol (VIT D3) 1,000 unit TAB PO SCH (10:16)
[2022-06-01] MEDS: HYDROcodone/ACETAMIN 5/325 mg TAB PO PRN (05:52)
[2022-06-01] MEDS: Sucralfate 1 gm SUSP 1 GM/10 ML UDC PO SCH (08:54)
[2022-06-01] MEDS: Cholecalciferol (VIT D3) 1,000 unit TAB PO SCH (08:54)
[2022-06-01 15:30] VITALS: BP 133/59
== END 2022-06-01 16:55 | DRG 948 ==
LOC: ED 13:24 → EDHOLD 13:24 → SUATTDRO 17:35 → MED 22:32 → SUATTDRO 05-29 13:00 → PMRU 06-01 17:26
PROVIDERS: ADMIT Hospitalist; ATTEND Internal Medicine

== ENCOUNTER 2022-06-01 13:05 | Inpatient (IN) ==
[2022-06-01] MEDS ORDERED: Senna TAB 8.6 mg TAB PO PRN (18:03)
[2022-06-01] MEDS ORDERED: Magnesium Hydroxide LIQ 30 ML UDC PO PRN (18:03)
[2022-06-01] MEDS ORDERED: Neomycin/Polym/Bacit TOP OINT 15 GM TOPICAL PRN (18:51)
[2022-06-01] MEDS ORDERED: Clotrimazole 1% CREAM 45 GM TOPICAL PRN (18:54)
[2022-06-01] MEDS ORDERED: Clotrimazole 1% CREAM 30 gm TOPICAL PRN (19:29)
[2022-06-01] MEDS: Sucralfate 1 gm SUSP 1 GM/10 ML UDC PO SCH (21:13)
[2022-06-02 05:57] LABS: ABS Basophils 0.1 10^3/ul (0-0.2); ABS Eosinophils 0.3 10^3/ul (0-0.6); ABS Lymphocytes 2.2 10^3/ul (1.0-4.8); ABS Monocytes 0.5 10^3/ul (0-0.8); ABS Neutrophils 3.6 10^3/ul (1.5-7.7); Eosinophil % 4.8 %; Hematocrit 32 % (35-47); Hemoglobin 10.4 g/dL (12.0-16.0); Lymphocyte % 32.8 %; Mean Corpuscular HGB Conc 33 g/dL (31-36); Mean Corpuscular Hemoglobin 31 pg (27-31); Mean Corpuscular Volume 94 fL (80-97); Mean Platelet Volume 7.9 fL (7.4-10.4); Platelet Count 249 10^3/uL (150-450); Red Blood Count 3.37 10^6 /uL (3.70-4.87); Red Cell Distribution Width 16 % (10-15); White Blood Count 6.6 10^3/uL (3.5-10.8)
[2022-06-02 06:16] LABS: Albumin 3.5 g/dL (3.2-5.2); Albumin/Globulin Ratio 1.1 (1-3); Calcium 9.5 mg/dL (8.6-10.3); Globulin 3.2 g/dL (2-4); Potassium 4.3 mmol/L (3.5-5.0); Total Bilirubin 0.4 mg/dL (0.2-1.0); Total Protein 6.7 g/dL (6.4-8.9); eGFR CKD-EPI 60.2 (>60)
[2022-06-02] MEDS: Cholecalciferol (VIT D3) 1,000 unit TAB PO SCH (09:41)
[2022-06-02] MEDS: Sucralfate 1 gm SUSP 1 GM/10 ML UDC PO SCH ×2 (09:42→20:27)
[2022-06-03] MEDS: Sucralfate 1 gm SUSP 1 GM/10 ML UDC PO SCH ×2 (07:43→20:58)
[2022-06-03] MEDS: Cholecalciferol (VIT D3) 1,000 unit TAB PO SCH (07:44)
[2022-06-04] MEDS: Sucralfate 1 gm SUSP 1 GM/10 ML UDC PO SCH ×2 (07:47→20:33)
[2022-06-04] MEDS: Cholecalciferol (VIT D3) 1,000 unit TAB PO SCH (07:48)
[2022-06-05] MEDS: Sucralfate 1 gm SUSP 1 GM/10 ML UDC PO SCH ×2 (08:13→20:44)
[2022-06-05] MEDS: Cholecalciferol (VIT D3) 1,000 unit TAB PO SCH (08:14)
[2022-06-06] MEDS: Cholecalciferol (VIT D3) 1,000 unit TAB PO SCH (08:07)
[2022-06-06] MEDS: Sucralfate 1 gm SUSP 1 GM/10 ML UDC PO SCH ×2 (08:15→20:25)
[2022-06-07] MEDS: Sucralfate 1 gm SUSP 1 GM/10 ML UDC PO SCH ×2 (08:05→20:55)
[2022-06-07] MEDS: Cholecalciferol (VIT D3) 1,000 unit TAB PO SCH (08:06)
[2022-06-07] MEDS ORDERED: ACIDOPHILUS PO SCH (09:00)
[2022-06-07] MEDS: ACIDOPHILUS PO SCH (15:39)
[2022-06-08] MEDS: Cholecalciferol (VIT D3) 1,000 unit TAB PO SCH (09:31)
[2022-06-08] MEDS: Sucralfate 1 gm SUSP 1 GM/10 ML UDC PO SCH ×2 (09:32→21:40)
[2022-06-08] MEDS: ACIDOPHILUS PO SCH (16:04)
[2022-06-09 00:42] LABS: Urine Appearance Clear; Urine Bilirubin Negative (Negative); Urine Color Yellow; Urine Glucose Negative (Negative); Urine Ketones Negative (Negative); Urine Nitrite Negative (Negative); Urine Protein Negative (Negative); Urine Specific Gravity 1.015 (1.005-1.030); Urine Urobilinogen 0.2 (Negative) (Negative)
[2022-06-09 01:04] LABS: Urine Bacteria 1+ (Absent); Urine Red Blood Cell 3+(>10/hpf) (Absent); Urine Squamous Epithelial Cell Present (Absent); Urine White Blood Cell 3+(>20/hpf) (Absent)
[2022-06-09 06:03] LABS: ABS Basophils 0.1 10^3/ul (0-0.2); ABS Eosinophils 0.3 10^3/ul (0-0.6); ABS Lymphocytes 2.2 10^3/ul (1.0-4.8); ABS Monocytes 0.5 10^3/ul (0-0.8); ABS Neutrophils 2.8 10^3/ul (1.5-7.7); Eosinophil % 4.3 %; Hematocrit 32 % (35-47); Hemoglobin 10.4 g/dL (12.0-16.0); Lymphocyte % 37.1 %; Mean Corpuscular HGB Conc 33 g/dL (31-36); Mean Corpuscular Hemoglobin 31 pg (27-31); Mean Corpuscular Volume 93 fL (80-97); Mean Platelet Volume 7.7 fL (7.4-10.4); Platelet Count 239 10^3/uL (150-450); Red Cell Distribution Width 16 % (10-15); White Blood Count 5.8 10^3/uL (3.5-10.8)
[2022-06-09 06:41] LABS: Albumin 3.4 g/dL (3.2-5.2); Albumin/Globulin Ratio 1.1 (1-3); Potassium 4.1 mmol/L (3.5-5.0); Total Bilirubin 0.3 mg/dL (0.2-1.0); Total Protein 6.4 g/dL (6.4-8.9); eGFR CKD-EPI 61.8 (>60)
[2022-06-09] MEDS: Sucralfate 1 gm SUSP 1 GM/10 ML UDC PO SCH ×2 (10:14→20:13)
[2022-06-09] MEDS: Cholecalciferol (VIT D3) 1,000 unit TAB PO SCH (10:16)
[2022-06-09] MEDS: ACIDOPHILUS PO SCH (14:03)
[2022-06-10 06:37] VITALS: BP 150/60
[2022-06-10] MEDS: Cholecalciferol (VIT D3) 1,000 unit TAB PO SCH (08:21)
[2022-06-10] MEDS: Sucralfate 1 gm SUSP 1 GM/10 ML UDC PO SCH (08:24)
== END 2022-06-10 13:15 | disposition home health service (06) | DRG 552 ==
LOC: PMRU 17:59
PROVIDERS: ADMIT Physical Medicine & Rehabilitation; ATTEND Physical Medicine & Rehabilitation

== ENCOUNTER 2024-02-25 17:20 | Inpatient (IN) ==
[2024-02-25] MEDS: Lactated Ringers SEPSIS* BAG 2,030 ML IV ONE (18:24)
[2024-02-25] MEDS: cefTRIAXone 1 gm/50 mL D5W 1 GM/50 ML BAG IV ONE (18:24)
[2024-02-25 18:26] LABS: ABS Basophils 0.1 10^3/uL (0.0-0.1); ABS Eosinophils 0.1 10^3/uL (0.0-0.5); ABS Lymphocytes 2.1 10^3/uL (1.0-4.8); ABS Monocytes 1.2 10^3/uL (0.0-0.9); ABS Neutrophils 6.1 10^3/uL (1.5-7.6); Eosinophil % 1.2 %; Hematocrit 31.8 % (35-45); Lymphocyte % 21.7 %; Mean Corpuscular Hemoglobin 32.4 pg (27-33); Mean Corpuscular Hgb Conc 34.5 g/dL (31-36); Mean Corpuscular Volume 93.8 fL (80-97); Mean Platelet Volume 7.9 fL (7.5-11.2); Platelet Count 242 10^3/uL (150-450); Red Blood Count 3.39 10^6/uL (3.63-4.92); Red Cell Distribution Width 15.2 % (12-17); White Blood Count 9.5 10^3/uL (3.8-11.8)
[2024-02-25 19:07] LABS: Albumin 3.7 g/dL (3.2-5.2); Albumin/Globulin Ratio 1.2 (1-3); C Reactive Protein 79.61 mg/L (<8.01); Calcium 8.9 mg/dL (8.6-10.3); Creatinine, Serum 0.84 mg/dL (0.51-0.95); Globulin 3.2 g/dL (2-4); Total Bilirubin 0.7 mg/dL (0.2-1.0); Total Protein 6.9 g/dL (6.4-8.9); eGFR CKD-EPI 68.1 (>60)
[2024-02-25 20:13] LABS: Urine Appearance Turbid; Urine Bilirubin Negative (Negative); Urine Blood 1+ (Negative); Urine Color Light-Yellow; Urine Glucose Negative (Negative); Urine Ketones Negative (Negative); Urine Nitrite 2+ (Negative); Urine Protein Negative (Negative); Urine Specific Gravity 1.007 (1.002-1.030); Urine Urobilinogen Negative (Negative); Urine pH 6.5 (5.0-8.0)
[2024-02-25 20:18] LABS: Urine Bacteria 1+ /HPF (Absent); Urine Red Blood Cell 1+(3-5/hpf) /HPF (0-Trace); Urine Squamous Epithelial Cell Present /HPF (Absent); Urine White Blood Cell 3+(>20/hpf) /HPF (0-Trace)
[2024-02-26 05:35] LABS: ABS Basophils 0.1 10^3/uL (0.0-0.1); ABS Eosinophils 0.2 10^3/uL (0.0-0.5); ABS Lymphocytes 1.8 10^3/uL (1.0-4.8); ABS Monocytes 0.9 10^3/uL (0.0-0.9); ABS Neutrophils 4.4 10^3/uL (1.5-7.6); ABS Nucleated RBC 0.01 10^3/ul; Eosinophil % 2.9 %; Hematocrit 29.9 % (35-45); Hemoglobin 10.1 g/dL (11.5-14.3); Lymphocyte % 24.3 %; Mean Corpuscular Hgb Conc 33.7 g/dL (31-36); Mean Corpuscular Volume 94.9 fL (80-97); Mean Platelet Volume 7.8 fL (7.5-11.2); Nucleated Red Blood Cells % 0.1 %/100WBC (0.0-0.8); Platelet Count 208 10^3/uL (150-450); Red Blood Count 3.15 10^6/uL (3.63-4.92); Red Cell Distribution Width 14.9 % (12-17); White Blood Count 7.4 10^3/uL (3.8-11.8)
[2024-02-26 06:18] LABS: Calcium 8.5 mg/dL (8.6-10.3); Creatinine, Serum 0.78 mg/dL (0.51-0.95); Potassium 3.9 mmol/L (3.5-5.0); eGFR CKD-EPI 74.4 (>60)
[2024-02-26] MEDS: Heparin 5000 UNITS/ML 1 mL VIAL SUBCUT SCH (06:30)
[2024-02-26] MEDS: Polyethylene Glycol 3350 17 GM PACKET PO PRN (08:53)
[2024-02-26] MEDS: Aspirin EC 81 mg TAB.EC (enteric coated) PO SCH (08:53)
[2024-02-26] MEDS: Cholecalciferol (VIT D3) 1,000 unit TAB PO SCH (08:54)
[2024-02-26] MEDS ORDERED: MAGNESIUM CITRATE 125 MG PO SCH (09:00)
[2024-02-26] MEDS: cefTRIAXone 2 gm/50 mL D5W 2 GM/50 ML BAG IV SCH (19:37)
[2024-02-27 06:23] LABS: ABS Basophils 0.1 10^3/uL (0.0-0.1); ABS Eosinophils 0.7 10^3/uL (0.0-0.5); Eosinophil % 10.9 %; Hematocrit 30.9 % (35-45); Hemoglobin 10.5 g/dL (11.5-14.3); Lymphocyte % 29.3 %; Mean Corpuscular Hemoglobin 31.8 pg (27-33); Mean Corpuscular Hgb Conc 33.8 g/dL (31-36); Mean Corpuscular Volume 94.1 fL (80-97); Platelet Count 234 10^3/uL (150-450); Red Blood Count 3.28 10^6/uL (3.63-4.92); Red Cell Distribution Width 14.5 % (12-17); White Blood Count 6.7 10^3/uL (3.8-11.8)
[2024-02-27 06:26] LABS: C Reactive Protein 61.18 mg/L (<8.01); Calcium 8.8 mg/dL (8.6-10.3); Creatinine, Serum 0.87 mg/dL (0.51-0.95); Potassium 4.2 mmol/L (3.5-5.0); eGFR CKD-EPI 65.2 (>60)
[2024-02-27] MEDS: LACTATED RINGERS 1000 ML BAG IV SCH (09:09)
[2024-02-27 15:23] LABS: High Sensitivity Troponin 1 Hr 68 pg/mL (<15)
[2024-02-27] MEDS ORDERED: Iohexol 180 (CONTRAST) 10 ML SDV IV ONE (16:37)
[2024-02-27] MEDS ORDERED: Propofol 10 MG/ML 20 ML BTL ONE (17:16)
[2024-02-27] MEDS ORDERED: Lidocaine 2% PF 5 ML VIAL ONE (17:16)
[2024-02-27] MEDS ORDERED: Midazolam 2 mg/2 ml VIAL 1 mg/ml 2 ml VIAL (2 mg) ONE (17:20)
[2024-02-27] MEDS ORDERED: Phenylephrine IV 10 MG/ML 1 ml VIAL ONE (17:26)
[2024-02-28 07:06] LABS: ABS Basophils 0.1 10^3/uL (0.0-0.1); ABS Eosinophils 0.6 10^3/uL (0.0-0.5); ABS Lymphocytes 1.7 10^3/uL (1.0-4.8); ABS Monocytes 0.7 10^3/uL (0.0-0.9); ABS Neutrophils 2.6 10^3/uL (1.5-7.6); ABS Nucleated RBC 0.01 10^3/ul; Eosinophil % 11.1 %; Hematocrit 30.9 % (35-45); Hemoglobin 10.2 g/dL (11.5-14.3); Lymphocyte % 29.4 %; Mean Corpuscular Hemoglobin 30.8 pg (27-33); Mean Corpuscular Hgb Conc 32.9 g/dL (31-36); Mean Corpuscular Volume 93.7 fL (80-97); Mean Platelet Volume 7.6 fL (7.5-11.2); Nucleated Red Blood Cells % 0.1 %/100WBC (0.0-0.8); Platelet Count 257 10^3/uL (150-450); Red Cell Distribution Width 14.9 % (12-17); White Blood Count 5.7 10^3/uL (3.8-11.8)
[2024-02-28 07:55] LABS: Calcium 8.5 mg/dL (8.6-10.3); Creatinine, Serum 0.93 mg/dL (0.51-0.95); eGFR CKD-EPI 60.2 (>60)
[2024-02-28] MEDS: Polyethylene Glycol 3350 17 GM PACKET PO SCH (14:19)
[2024-02-28 14:49] VITALS: BP 111/61
== END 2024-02-28 16:30 | disposition home or self-care (01) | DRG 654 ==
LOC: ED 17:20 → EDHOLD 17:20 → OBSVTOIN 23:25 → SUATTDRO 23:25 → SSU 02-26 04:55
PROVIDERS: ADMIT Internal Medicine; ATTEND Internal Medicine